=== PATIENT | male | born 1955 | race Two or more races ===

== ENCOUNTER 2019-12-14 09:15 | Outpatient (REF) | payer OTHER, SELFPAY ==
[2019-12-14 10:24] LABS: Alanine Aminotransferase 22 U/L (0-40); Albumin Level 4.6 g/dL (3.5-5.0); Alkaline Phosphatase 85 U/L (39-117); Aspartate Amino Transferase 19 U/L (5-37); Bilirubin Direct 0.2 mg/dL (0.0-0.5); Bilirubin Total 0.4 mg/dL (0.0-1.0); Cholesterol 157 mg/dL; HDL Cholesterol 34 mg/dL; LDL Cholesterol Calculated 85 mg/dl; Triglycerides 192 mg/dL
== END 2019-12-14 09:16 | disposition home or self-care (01) ==
LOC: HO.LAB 09:15
PROVIDERS: PCP Internal Medicine; Visit Provider Internal Medicine
DX: E11.65 Type 2 diabetes mellitus with hyperglycemia (principal); E78.00 Pure hypercholesterolemia, unspecified
CPT/HCPCS: 36415; 80061; 80076

== ENCOUNTER 2020-03-02 07:11 | Outpatient (REF) | payer OTHER, SELFPAY | END 2020-03-02 07:12 | disposition home or self-care (01) | LOC: HO.LAB 07:11 | PROVIDERS: Visit Provider Internal Medicine | DX: Z20.828 Contact with and (suspected) exposure to other viral communicable diseases (principal) | CPT/HCPCS: C9803; U0003 ==

== ENCOUNTER → 2020-05-06 07:25 | Outpatient (BNVA) | payer OTHER, SELFPAY | PROVIDERS: PCP Internal Medicine; Visit Provider Nurse Practitioner Gerontology | DX: E11.65 Type 2 diabetes mellitus with hyperglycemia (principal); Z79.4 Long term (current) use of insulin; E03.9 Hypothyroidism, unspecified; I10 Essential (primary) hypertension; E78.5 Hyperlipidemia, unspecified; E55.9 Vitamin D deficiency, unspecified | CPT/HCPCS: 82947 ==

== ENCOUNTER 2020-05-06 08:34 | Outpatient (REF) | payer OTHER, SELFPAY ==
[2020-05-06 11:05] LABS: Free T4 (Free Thyroxine) 1.07 ng/dL (0.71-1.85); Thyroid Stimulating Hormone 2.14 uIU/mL (0.32-4.0)
== END 2020-05-06 08:35 | disposition home or self-care (01) ==
LOC: HO.10HDL 08:34
PROVIDERS: Visit Provider Nurse Practitioner Gerontology
DX: E03.9 Hypothyroidism, unspecified (principal)
CPT/HCPCS: 36415; 84439; 84443

== ENCOUNTER → 2020-08-05 07:17 | Outpatient (BNVA) | payer OTHER, SELFPAY | PROVIDERS: PCP Internal Medicine; Visit Provider Nurse Practitioner Gerontology | DX: E11.9 Type 2 diabetes mellitus without complications (principal); E03.9 Hypothyroidism, unspecified; I10 Essential (primary) hypertension; E78.5 Hyperlipidemia, unspecified; E55.9 Vitamin D deficiency, unspecified; Z79.4 Long term (current) use of insulin | CPT/HCPCS: 82947 ==

== ENCOUNTER 2020-09-10 06:39 | Outpatient (REF) | payer OTHER, SELFPAY ==
[2020-09-10 08:44] LABS: MANUAL DIFF FLAG NO
[2020-09-10 08:47] LABS: Basophils Absolute Auto 0.1 X10*3/uL (0.0-0.2); Basophils Percent Auto 0.7 % (0-2); Eosinophils Absolute Auto 0.3 X10*3/uL (0.0-0.4); Eosinophils Percent Auto 4.2 % (0-4); Hematocrit 45.9 % (42-52); Hemoglobin 14.9 g/dl (14.0-18.0); Imm Gran Abs Auto 0.02 X10*3/uL (0.00-0.03); Imm Gran Pct Auto 0.3 % (0.0-0.4); Lymphocytes Absolute Auto 2.4 X10*3/uL (1.2-4.9); Lymphocytes Percent Auto 36.2 % (20-40); Mean Corpuscular HGB Conc 32.5 g/dl (31.0-36.0); Mean Corpuscular Hemoglobin 29.5 pg (27.0-33.0); Mean Corpuscular Volume 90.9 fL (80-98); Mean Platelet Volume 9.8 fL (9.4-12.4); Monocytes Absolute Auto 0.6 X10*3/uL (0.1-1.2); Monocytes Percent Auto 9.6 % (2-11); Neutrophils Absolute Auto 3.3 X10*3/uL (2.0-8.3); Platelet Count 283 X10*3/uL (160-400); Red Blood Count 5.05 X10*6/uL (4.60-5.80); Red Cell Distribution Width 12.8 % (11.0-16.0); White Blood Count 6.7 X10*3/uL (4.8-10.8)
[2020-09-10 08:56] LABS: Estimated Average Glucose 174 mg/dL; Hemoglobin A1c % 7.7 %
[2020-09-10 09:05] LABS: Alanine Aminotransferase 17 U/L (0-40); Albumin Level 4.4 g/dL (3.5-5.0); Alkaline Phosphatase 81 U/L (39-117); Anion Gap 14 (12-20); Aspartate Amino Transferase 19 U/L (5-37); Bilirubin Total 0.3 mg/dL (0.0-1.0); Blood Urea Nitrogen 23 mg/dL (9-16); Calcium 9.1 mg/dL (8.4-10.2); Carbon Dioxide 26 mmol/L (22-29); Chloride 103 mmol/L (96-108); Cholesterol 203 mg/dL; Estimated Glomerular Filt Rate > 60; Glucose Fasting 150 mg/dL (60-99); HDL Cholesterol 33 mg/dL; LDL Cholesterol Calculated 101 mg/dl; Potassium 4.6 mmol/L (3.3-5.1); Sodium 138 mmol/L (135-145); Triglycerides 348 mg/dL
[2020-09-10 09:28] LABS: Creatinine Urine 91.51 mg/dL; Microalbum/Creatinine Ratio Ur 10.9 ug/mg cr
[2020-09-10 09:28] LABS: Folate 14.8 ng/mL (> or = 4.0); Free T4 (Free Thyroxine) 1.04 ng/dL (0.71-1.85); Thyroid Stimulating Hormone 2.77 uIU/mL (0.32-4.0); Vitamin B12 404 pg/mL (200-900)
[2020-09-10 09:29] LABS: Vitamin D 25-OH Total 22.2 ng/mL (>30)
[2020-09-11 05:32] LABS: LDL Cholesterol Direct 83 mg/dL (<100)
== END 2020-09-10 06:40 | disposition home or self-care (01) ==
LOC: HO.LAB 06:39
PROVIDERS: Absent Provider Nurse Practitioner Gerontology; PCP Internal Medicine; Visit Provider Internal Medicine
DX: E11.65 Type 2 diabetes mellitus with hyperglycemia (principal); E03.9 Hypothyroidism, unspecified; I10 Essential (primary) hypertension; E78.00 Pure hypercholesterolemia, unspecified; E78.5 Hyperlipidemia, unspecified; E55.9 Vitamin D deficiency, unspecified; Z79.4 Long term (current) use of insulin
CPT/HCPCS: 36415; 80053; 80061; 82043; 82306; 82607; 82746; 83036; 83721; 84153; 84439; 84443; 85025

== ENCOUNTER → 2021-02-10 07:23 | Outpatient (BNVA) | payer OTHER, SELFPAY | PROVIDERS: PCP Internal Medicine; Visit Provider Nurse Practitioner Gerontology | DX: E11.9 Type 2 diabetes mellitus without complications (principal); E03.9 Hypothyroidism, unspecified; E78.5 Hyperlipidemia, unspecified; E55.9 Vitamin D deficiency, unspecified; I10 Essential (primary) hypertension; Z79.4 Long term (current) use of insulin | CPT/HCPCS: 82947 ==

== ENCOUNTER 2021-03-27 09:27 | Outpatient (REF) | payer OTHER, SELFPAY ==
[2021-03-27 11:24] LABS: Alanine Aminotransferase 21 U/L (0-40); Albumin Level 4.5 g/dL (3.5-5.0); Alkaline Phosphatase 82 U/L (39-117); Anion Gap 11 (12-20); Aspartate Amino Transferase 20 U/L (5-37); Bilirubin Total 0.7 mg/dL (0.0-1.0); Blood Urea Nitrogen 22 mg/dL (9-16); Calcium 9.6 mg/dL (8.4-10.2); Carbon Dioxide 29 mmol/L (22-29); Chloride 105 mmol/L (96-108); Cholesterol 149 mg/dL; Estimated Glomerular Filt Rate > 60; Glucose Random 146 mg/dL (60-115); HDL Cholesterol 25 mg/dL; LDL Cholesterol Calculated 74 mg/dl; Sodium 140 mmol/L (135-145); Total Protein 7.5 g/dL (6.5-8.0); Triglycerides 250 mg/dL
[2021-03-27 11:36] LABS: Estimated Average Glucose 177 mg/dL; Hemoglobin A1c % 7.8 %
== END 2021-03-27 09:28 | disposition home or self-care (01) ==
LOC: HO.LAB 09:27
PROVIDERS: PCP Internal Medicine; Visit Provider Internal Medicine
DX: E11.65 Type 2 diabetes mellitus with hyperglycemia (principal); E78.00 Pure hypercholesterolemia, unspecified; E78.5 Hyperlipidemia, unspecified; Z79.4 Long term (current) use of insulin
CPT/HCPCS: 36415; 80053; 80061; 83036

== ENCOUNTER 2022-09-03 12:27 | Outpatient (REF) | payer MEDICARE, SELFPAY ==
--- NOTE | 2022-09-03 12:32 | ECG_ITS ---
Test Reason : preop Blood Pressure : / mmHG Vent. Rate : 076 BPM Atrial Rate : 076 BPM P-R Int : 170 ms QRS Dur : 104 ms QT Int : 370 ms P-R-T Axes : 069 -02 054 degrees QTc Int : 416 ms Normal sinus rhythm Normal ECG When compared with ECG of 05-MAY-2019 03:04, No significant change was found Referred By: Tabatha Arndt Electronically Signed By:SALVADOR JOSHI
[2022-09-03 12:53] LABS: Hematocrit 44.7 % (42.0-52.0); Hemoglobin 14.8 g/dl (14.0-18.0); Mean Corpuscular HGB Conc 33.1 g/dl (31.0-36.0); Mean Corpuscular Hemoglobin 29.9 pg (27.0-33.0); Mean Corpuscular Volume 90.3 fL (80.0-98.0); Mean Platelet Volume 9.2 fL (9.4-12.4); Platelet Count 296 X10*3/uL (160-400); Red Blood Count 4.95 X10*6/uL (4.60-5.80); Red Cell Distribution Width 13.1 % (11.0-16.0); White Blood Count 6.9 X10*3/uL (4.8-10.8)
[2022-09-03 12:58] LABS: INTERNATIONAL NORM RATIO 0.9 (0.9-1.1); Prothrombin Time 10.3 SEC (10.0-13.1)
[2022-09-03 13:07] LABS: Estimated Average Glucose 140 mg/dL; Hemoglobin A1c % 6.5 %
[2022-09-03 13:35] LABS: Anion Gap 16 (12-20); Blood Urea Nitrogen 20 mg/dL (9-16); Calcium 9.9 mg/dL (8.4-10.2); Carbon Dioxide 22 mmol/L (22-29); Chloride 105 mmol/L (96-108); Estimated Glomerular Filt Rate > 60; Glucose Random 111 mg/dL (60-115); Potassium 4.2 mmol/L (3.3-5.1); Sodium 139 mmol/L (135-145)
[2022-09-03 13:52] LABS: TSH reflex Free T4 2.36 uIU/mL (0.32-4.0)
== END 2022-09-03 12:28 | disposition home or self-care (01) ==
LOC: HO.LAB 12:27
PROVIDERS: PCP Internal Medicine; Visit Provider Nurse Practitioner Family
DX: Z01.818 Encounter for other preprocedural examination (principal); E11.65 Type 2 diabetes mellitus with hyperglycemia; I10 Essential (primary) hypertension; H26.9 Unspecified cataract
CPT/HCPCS: 36415; 80048; 83036; 84443; 85027; 85610; 93005

== ENCOUNTER 2022-10-26 08:18 | Outpatient (AMB) | payer MEDICARE, SELFPAY ==
[2022-10-26 08:35] VITALS: BP 108/68; PULSE 66; O2SAT 99; BMI 24.8
--- NOTE | 2022-10-26 08:35 | A.OFFPC_ITS ---
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 Allergies dulaglutide [Trulicity] Allergy (Unknown, Verified 10/26/22 08:49) pancreatitis sitagliptin [From JANUVIA] Allergy (Unknown, Verified 10/26/22 08:49) DIARRHEA Medication List - Last Reconciled 10/26/22 by MACIEJ Jefferson aspirin 81 mg PO DAILY blood sugar diagnostic ([employer] Verio test strips) As directed three times a day cholecalciferol (vitamin D3) 50 mcg (2 x 25 mcg (1,000 unit)) PO DAILY empagliflozin (Jardiance) 25 mg PO DAILY flash glucose scanning reader ([employer]Style Lucinda 14 Day [place]) As directed flash glucose sensor ([employer]Style Lucinda 14 Day Sensor kit) As directed insulin glargine (Lantus Solostar U-100 Insulin) 26 units subcut QPM insulin lispro (Humalog KwikPen (U-100) Insulin) 2-6 units per meal, may add additional 2 units for bg over 200 subcut 3 times a day; 30 days levothyroxine 50 mcg PO DAILY lisinopril 10 mg PO DAILY metformin 500 mg in the AM and 1000 in the pm. 30 days omega-3 fatty acids 1,000 mg PO DAILY rosuvastatin 20 mg PO DAILY Tobacco use date assessed: 10/26/22 Fall risk assessment: No Falls in past year Last assessed Fall Risk: 10/26/22 Dental Screening Dental Screen Date: 10/26/22 Did you have a dental visit in the last 12 months?: Yes Did you have a dental problem in the last 6 months where you did not have access to dental care?: No HPI HPI Comments History of Present Illness Details 67-year-old male with history of hypertension, hyperlipidemia, type 2 diabetes mellitus, CKD, subclinical hypothyroidism and vitamin-D deficiency.? Patient last seen in august.?Patient presents today for follow up visit. Right shoulder pain at times at night, with occasional popping. Patient reports cortisone shot in the past for bone spur at [facility]. Denies pain at his time. Patient denies any acute injury, denies any numbness tingling down the arm and upper extremity weakness. Offered referral to physical therapy however patient declines at this time would like to proceed with x-ray 1st. Patient reminded to get previously ordered fasting labs completed. [facility] Medical History (Updated 10/26/22 @ 08:59 by MACIEJ Jefferson) Chronic kidney disease (CKD) stage G2/A1, mildly decreased glomerular filtration rate (GFR) between 60-89 mL/min/1.73 square meter and albuminuria creatinine ratio less than 30 mg/g COVID-19 virus infection Degenerative disc disease, lumbar Diabetic nephropathy Hyperlipidemia LDL goal <100 Hypertension Leukopenia Lumbar back pain with radiculopathy affecting left lower extremity Overweight (BMI 25.0-29.9) Pancreatitis Subclinical hypothyroidism Tubular adenoma of colon Type 2 diabetes mellitus with hyperglycemia Vitamin D deficiency Surgical History History of thumb surgery Hx of hand surgery Retained orthopedic hardware Trigger thumb, right thumb Family History Father No problems noted. Mother Diabetes Brother Diabetes Sister No problems noted. Social History Household Members: Family Housing: House Alcohol intake: current Alcohol intake frequency: holidays/special occasions only Alcohol type: beer Patient Tobacco Use Status: Former Tobacco user Tobacco use type: Cigarette e-Cigarette/Vaping Use: Never Used Second Hand Smoke Exposure: No service: Yes Current occupational status: employed Current occupational exposures/hazards: No Cognitive needs: No Hearing needs: No Vision needs: No Questionnaire Thrive Questionnaire Date Thrive assessed: 04/20/22 AUDIT C Alcohol Use Questionnaire (AUDIT-C) 1. How often do you have a drink containing alcohol?: Never 3. How often do you have six or more drinks on one occasion?: Never Total Score: 0 Score Reviewed/Action Taken: No THEODORE-7 AMB Questionnaire THEODORE-7 Date THEODORE - 7 assessed: 04/20/22 Source: Developed by Drs. Jovani Campos, Terri Tran, Javi Carranza and colleagues, with an educational toni from [employer] Review of Systems Const Denies chills, Denies fatigue, Denies fever(s) and Denies poor appetite Eyes Denies no additional complaints ENT Reports Normal hearing present Card Denies chest pain, Denies syncope, Denies rapid heart rate and Denies dyspnea Resp Denies cough and Denies dyspnea GI Denies change in stool character, Denies constipation, Denies diarrhea, Denies nausea and Denies vomiting Denies dysuria, Denies urinary frequency and Denies urinary urgency Musc Reports arthralgias (right shoulder pain ) Neuro Reports Normal hearing present, Denies confusion and Denies syncope Psych Denies confusion Endo Denies fatigue Physical exam (Primary Care) Vital Signs: Last Vital Signs Pulse 66 10/26/22 08:35 BP 108/68 10/26/22 08:35 Pulse Ox 99 10/26/22 08:35 Oxygen Delivery Method Room Air 10/26/22 08:35 BMI result Body Mass Index 24.8 Tobacco/Smoking Status: Tobacco use Status Tobacco use date assessed 10/26/22 10/26/22 08:36 Patient Tobacco Use Status Former Tobacco user 10/26/22 08:36 Tobacco use type Cigarette 10/26/22 08:36 e-Cigarette/Vaping Use Never Used 10/26/22 08:36 Thrive Assessment: Date of Thrive Assessment Date Thrive assessed 04/20/22 10/26/22 08:36 Const General: No confusion Orientation/consciousness: No confusion HENMT Head: Yes normocephalic and Yes atraumatic Eyes Conjunctivae: conjunctivae normal Chest Chest palpation & inspection: normal inspection of the chest Resp Effort & Inspection: normal respiratory effort Auscultation: clear to auscultation bilaterally, no crackles, no rhonchi and no wheezes Cardio Rate: regular rate Rhythm: regular rhythm Heart sounds: S1 normal heart sound present and S2 normal heart sound present GI Inspection: Yes normal to inspection Neuro General: No confusion Cranial nerves: Yes Normal hearing present Extrem General: No edema Right upper extremity: normal to inspection and shoulder/upper arm Details: normal to inspection and abnormal ROM Details: pain with active ROM; no pain with passive ROM; no tenderness and no swelling Left upper extremity: normal to inspection and full ROM Assessment and Plan Assessment & Plan (1) Right shoulder pain: Code(s): M25.511 - Pain in right shoulder Plan: Right shoulder x-ray ordered. Patient advise can continue to take [id number] Tylenol or ibuprofen as needed for pain. Offered referral to physical therapy however patient would like to obtain x-ray prior to considering physical therapy referral. (2) Type 2 diabetes mellitus with hyperglycemia: Code(s): E11.65 - Type 2 diabetes mellitus with hyperglycemia Qualifiers: Diabetes mellitus manager terminal insulin use: with mcfp use Qualified Code(s): E11.65 - Type 2 diabetes mellitus with hyperglycemia; Z79.4 - manager terminal (current) use of insulin Plan: Continue on metformin, Humalog and Lantus 26 units. Patient educated to decrease the amount of carbohydrate intake such as pasta, bread, rice and potatoes are all sugar in addition to the sweet stuff. Remember that fruits are good but they also have sugar.Hemoglobin A1c goal of less than 6.5% With patient reminded him previously ordered fasting labs completed. (3) Hyperlipidemia LDL goal <100: Code(s): E78.5 - Hyperlipidemia, unspecified Plan: Continue on rosuvastatin. Avoid fried foods, chicken skin, eggs, butter,margarine, pastries and? red meat. (4) Subclinical hypothyroidism: Code(s): E03.9 - Hypothyroidism, unspecified Plan: Continue on levothyroxine 50mcg daily. Plan Keep scheduled physical exam with in April. Orders: Orders XR shoulder RT min 2V Today M25.511 - Pain in right shoulder Coding Level of Care Code Est Pt Level 4 (09703) Diagnoses Right shoulder pain M25.511 Type 2 diabetes mellitus with hyperglycemia E11.65; Z79.4 Diabetes mellitus manager terminal insulin use: with mcfp use Hyperlipidemia LDL goal <100 E78.5 Subclinical hypothyroidism E03.9
== END 2022-10-26 08:57 | disposition home or self-care (01) ==
PROVIDERS: PCP Internal Medicine; Visit Provider Nurse Practitioner Family
DX: E11.65 Type 2 diabetes mellitus with hyperglycemia (principal); Z79.4 Long term (current) use of insulin; E03.9 Hypothyroidism, unspecified; M25.511 Pain in right shoulder; E78.5 Hyperlipidemia, unspecified
CPT/HCPCS: 99214

== ENCOUNTER 2022-10-26 09:02 | Outpatient (REF) | payer MEDICARE, SELFPAY ==
--- NOTE | ~2022-10-26 | XR_ITS ---
EXAMINATION: XR SHOULDER, RIGHT CLINICAL INFORMATION: Pain in right shoulder COMPARISON: None available. TECHNIQUE: AP external rotation, Grashey, scapular Y, and axillary views of the right shoulder. FINDINGS: Degenerative changes on limited views of the upper thoracic spine. Mild hypertrophic change in the acromioclavicular joint. Glenohumeral alignment preserved with mild hypertrophic change. Mild cortical irregularity along the superior mid to lateral aspect of the humeral head. XR/XR shoulder RT min 2V IMPRESSION: Mild cortical irregularity along the superior mid to lateral aspect of the humeral head. Mild degenerative changes. Additional imaging with CT scan or MRI should be considered for better visualization as these modalities are much more sensitive for detection of fracture or other underlying pathology.
[2022-10-26 09:13] LABS: MANUAL DIFF FLAG NO
[2022-10-26 10:28] LABS: Basophils Percent Auto 0.6 % (0-2); Eosinophils Absolute Auto 0.3 X10*3/uL (0.0-0.4); Eosinophils Percent Auto 4.9 % (0-4); Hematocrit 44.4 % (42.0-52.0); Hemoglobin 14.5 g/dl (14.0-18.0); Imm Gran Abs Auto 0.02 X10*3/uL (0.00-0.03); Imm Gran Pct Auto 0.3 % (0.0-0.4); Lymphocytes Absolute Auto 2.1 X10*3/uL (1.2-4.9); Lymphocytes Percent Auto 33.3 % (20-40); Mean Corpuscular HGB Conc 32.7 g/dl (31.0-36.0); Mean Corpuscular Hemoglobin 29.9 pg (27.0-33.0); Mean Corpuscular Volume 91.5 fL (80.0-98.0); Mean Platelet Volume 9.5 fL (9.4-12.4); Monocytes Absolute Auto 0.6 X10*3/uL (0.1-1.2); Monocytes Percent Auto 9.1 % (2-11); Neutrophils Absolute Auto 3.3 x10*3/uL (2.0-8.3); Neutrophils Percent Auto 51.8 % (45-73); Platelet Count 283 X10*3/uL (160-400); Red Blood Count 4.85 X10*6/uL (4.60-5.80); White Blood Count 6.4 X10*3/uL (4.8-10.8)
[2022-10-26 11:31] LABS: Estimated Average Glucose 143 mg/dL; Hemoglobin A1c % 6.6 %
[2022-10-26 11:41] LABS: Alanine Aminotransferase 18 U/L (0-40); Albumin Level 4.2 g/dL (3.5-5.0); Alkaline Phosphatase 69 U/L (39-117); Anion Gap 12 (12-20); Aspartate Amino Transferase 19 U/L (5-37); Bilirubin Total 0.3 mg/dL (0.0-1.0); Blood Urea Nitrogen 15 mg/dL (9-16); Calcium 9.5 mg/dL (8.4-10.2); Carbon Dioxide 27 mmol/L (22-29); Chloride 107 mmol/L (96-108); Cholesterol 164 mg/dL; Estimated Glomerular Filt Rate > 60; HDL Cholesterol 37 mg/dL; LDL Cholesterol Calculated 106 mg/dl; Potassium 3.5 mmol/L (3.3-5.1); Sodium 142 mmol/L (135-145); Total Protein 6.9 g/dL (6.5-8.0); Triglycerides 109 mg/dL
[2022-10-26 11:52] LABS: PSA,Total (Free>4and<10) 2.52 ng/mL (0.00-4.00)
[2022-10-26 11:58] LABS: TSH reflex Free T4 2.61 uIU/mL (0.32-4.0); Vitamin D 25-OH Total 47.3 ng/mL (>30)
[2022-10-26 14:01] LABS: Glucose Random 43 mg/dL (60-115)
== END 2022-10-26 09:03 | disposition home or self-care (01) ==
LOC: HO.LAB 09:02
PROVIDERS: PCP Internal Medicine; Visit Provider Nurse Practitioner Family
DX: Z13.0 Encounter for screening for diseases of the blood and blood-forming organs and certain disorders involving the immune mechanism (principal); Z12.5 Encounter for screening for malignant neoplasm of prostate; Z13.29 Encounter for screening for other suspected endocrine disorder; M25.511 Pain in right shoulder; E55.9 Vitamin D deficiency, unspecified; E78.5 Hyperlipidemia, unspecified; E11.65 Type 2 diabetes mellitus with hyperglycemia
CPT/HCPCS: 36415; 73030; 80053; 80061; 82306; 83036; 84153; 84443; 85025

== ENCOUNTER 2022-11-12 13:52 | Outpatient (REF) | payer MEDICARE, SELFPAY ==
--- NOTE | ~2022-11-12 | CT_ITS ---
EXAMINATION: CT SHOULDER WITHOUT CONTRAST, RIGHT CLINICAL INFORMATION: Osteoarthritis. COMPARISON: Right shoulder radiographs dated 10/26/2022. TECHNIQUE: Contiguous axial CT images of the right shoulder were obtained without contrast. Multiplanar reformats were provided and reviewed. This CT examination was performed using dose optimization techniques as appropriate, variously including the following: *Automated exposure control *Adjustment of mA and/or kV according to patient size (this includes techniques or standardized protocols for targeted exams where dose is matched to indication/reason for exam; i.e. extremities or head) *Use of iterative reconstruction technique DLP: 272 mGy-cm FINDINGS: Moderate glenohumeral joint space narrowing with small marginal osteophytes. No significant bony remodeling. No significant glenoid retroversion. Glenoid vault depth measures approximately 2.3 cm. Mild acromioclavicular joint space narrowing with small marginal osteophytes. No subacromial spurring. No acute fracture or dislocation. No concerning lytic or blastic osseous lesion. Partially visualized degenerative disc disease and facet arthropathy within the cervical spine. Grossly intact rotator cuff tendons, however, evaluation is significantly limited on CT examination. Small glenohumeral joint effusion. No abnormal soft tissue mass or fluid collection. No right axillary lymphadenopathy. Subpleural nodule measuring 0.3 x 0.2 cm along the lateral aspect of the right major fissure (axial image [id number]). Otherwise, the visualized right lung is clear. CT/CT shoulder RT wo IV con IMPRESSION: 1. Moderate glenohumeral osteoarthritis. Small joint effusion. 2. Mild acromioclavicular osteoarthritis. 3. Partially visualized degenerative disc disease and facet arthropathy within the cervical spine. 4. Subpleural nodule along the lateral aspect of the right major fissure measuring up to 0.3 cm. According to the UPDATED 2017 Fleischner Society recommendations, the advised follow-up imaging for solid nodules < 6 mm is: LOW RISK PATIENT: No routine follow-up. HIGH RISK PATIENT: Optional CT at 12 months.
== END 2022-11-12 13:53 | disposition home or self-care (01) ==
LOC: HO.CT 13:52
PROVIDERS: Visit Provider Nurse Practitioner Family
DX: M19.011 Primary osteoarthritis, right shoulder (principal)
CPT/HCPCS: 73200

== ENCOUNTER 2022-12-17 10:45 | Outpatient (AMB) | payer MEDICARE, SELFPAY ==
--- NOTE | 2022-12-17 10:49 | MHC.OFFVIS ---
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 Patient reports that this pain has been present for about 12 years. Denies numbness tingling and weakness. Hx of cortisone done at [facility]. CT scan was done at [facility] showing mild AC joint OA. HE reports it hurts a lot when he is sleeping and with certain movements. Allergies dulaglutide [Trulicity] Allergy (Unknown, Verified 12/17/22 10:51) pancreatitis sitagliptin [From JANUVIA] Allergy (Unknown, Verified 12/17/22 10:51) DIARRHEA Medication List - Last Reconciled 12/17/22 by Marine Tariq RN aspirin 81 mg PO DAILY blood sugar diagnostic ([employer] Verio test strips) As directed three times a day cholecalciferol (vitamin D3) 50 mcg (2 x 25 mcg (1,000 unit)) PO DAILY empagliflozin (Jardiance) 25 mg PO DAILY flash glucose scanning reader ([employer] Lucinda 14 Day [place]) As directed flash glucose sensor ([employer] Lucinda 14 Day Sensor kit) As directed insulin glargine (Lantus Solostar U-100 Insulin) 26 units subcut QPM insulin lispro (Humalog KwikPen (U-100) Insulin) 2-6 units per meal, may add additional 2 units for bg over 200 subcut 3 times a day; 30 days levothyroxine 50 mcg PO DAILY lisinopril 10 mg PO DAILY metformin 500 mg in the AM and 1000 in the pm. 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 He complains of pain with daily activity, worse with certain movements and at night. He reports having difficulty sleeping due to his pain, as well as with overhead reaching activities. He denies any numbness, tingling, or weakness. He has a hx of steroid injections at [facility] in the past. [facility] History (Updated 12/17/22 @ 11:11 by Kade Cool) COVID-19 virus infection Type 2 diabetes mellitus with hyperglycemia Pancreatitis Hyperlipidemia LDL goal <100 Diabetic nephropathy Degenerative disc disease, lumbar Vitamin D deficiency Leukopenia Lumbar back pain with radiculopathy affecting left lower extremity Subclinical hypothyroidism Tubular adenoma of colon Chronic kidney disease (CKD) stage G2/A1, mildly decreased glomerular filtration rate (GFR) between 60-89 mL/min/1.73 square meter and albuminuria creatinine ratio less than 30 mg/g Hypertension Overweight (BMI 25.0-29.9) Surgical History Retained orthopedic hardware Hx of hand surgery History of thumb surgery Trigger thumb, right thumb Family History Father No problems noted. Mother Diabetes Brother Diabetes Sister No problems noted. Social History Household Members: Family Housing: House Alcohol intake: current Alcohol intake frequency: holidays/special occasions only Alcohol type: beer Patient Tobacco Use Status: Former Tobacco user Tobacco use type: Cigarette e-Cigarette/Vaping Use: Never Used Second Hand Smoke Exposure: No service: Yes Current occupational status: employed Current occupational exposures/hazards: No Cognitive needs: No Hearing needs: No Vision needs: No Review of Systems Const All systems reviewed & are unremarkable except as noted in HPI and below Physical Exam Const General: no acute distress, alert and awake Orientation/consciousness: patient oriented x3 HEENT Head: Yes normocephalic and Yes atraumatic Eyes EOM: EOMs intact bilaterally Resp Effort & Inspection: normal respiratory effort and able to speak in complete sentences Cardio Jugular venous distension: no JVD Skin General skin exam: turgor normal Rashes: no rashes Neuro General: patient oriented x3 Extrem Other: Right Shoulder: 90/130/40/L5 +H/N Neg EC Psych Appearance: grossly normal Affect: normal affect Attitude: cooperative Results Reviewed Results Reviewed: I personally reviewed relevant radiographs & CT images Mild cortical irregularity along the superior mid to lateral aspect of the humeral head. Mild degenerative changes. Additional imaging with CT scan or MRI should be considered for better visualization as these modalities are much more sensitive for detection of fracture or other underlying pathology. 1. Moderate glenohumeral osteoarthritis. Small joint effusion. 2. Mild acromioclavicular osteoarthritis. 3. Partially visualized degenerative disc disease and facet arthropathy within the cervical spine. 4. Subpleural nodule along the lateral aspect of the right major fissure measuring up to 0.3 cm. Assessment & Plan Assessment & Plan (1) Impingement syndrome of right shoulder: Code(s): M75.41 - Impingement syndrome of right shoulder Plan: This is a 67 year old man with right shoulder impingement. He has pain with daily activity, worse with overhead activities and at night. He has a hx of injections at [facility], with some relief. He has some OA on radiographs but his motion is good and his symptoms are more extra-articular. I discussed his diagnosis and treatment options. I ordered an MRI to assess his shoulder, he will follow up when completed for review. 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
== END 2022-12-17 11:17 | disposition home or self-care (01) ==
PROVIDERS: PCP Internal Medicine; Visit Provider Orthopaedic Surgery
DX: M75.41 Impingement syndrome of right shoulder (principal)
CPT/HCPCS: 99204

== ENCOUNTER → 2022-12-17 10:45 | Outpatient (BNVA) | payer MEDICARE, SELFPAY | PROVIDERS: PCP Internal Medicine; Visit Provider Orthopaedic Surgery ==

== ENCOUNTER 2023-11-24 11:38 | Outpatient (AMB) | payer MEDICARE, SELFPAY ==
[2023-11-24 11:46] VITALS: BP 118/76; PULSE 97; O2SAT 98; BMI 24.1
--- NOTE | 2023-11-24 11:46 | MHC.PC.OV ---
Vital Signs 11/24/23 11:46 Height 5 ft 7 in Weight 154 lb BMI 24.1 BP 118/76 Blood Pressure Location Lt brachial Position Sitting Pulse 97 Pulse Source Pulse Oximeter Pulse Oximetry (%) 98 Oxygen Delivery Method Room Air Intake Visit Reasons: PE - see comments Affiliate Marketing Specialist Required: No Accompanied by: Self / Same As Patient Allergies dulaglutide [Trulicity] Allergy (Unknown, Verified 11/24/23 11:50) pancreatitis sitagliptin [From JANUVIA] Allergy (Unknown, Verified 11/24/23 11:50) DIARRHEA Medication List - Last Reconciled 11/24/23 by Freddie Wade MD aspirin 81 mg PO DAILY blood sugar diagnostic ([employer] Verio test strips) As directed three times a day cholecalciferol (vitamin D3) 50 mcg (2 x 25 mcg (1,000 unit)) PO DAILY empagliflozin (Jardiance) 25 mg PO DAILY flash glucose scanning reader (XOGStyle Lucinda 14 Day [place]) As directed flash glucose sensor (FreeStyle Lucinda 14 Day Sensor kit) As directed insulin glargine (Lantus Solostar U-100 Insulin) 26 units subcut QPM insulin lispro (Humalog KwikPen (U-100) Insulin) 2-6 units per meal, may add additional 2 units for bg over 200 subcut 3 times a day; 30 days levothyroxine 50 mcg PO DAILY lisinopril 10 mg PO DAILY metformin 1,000 mg PO BIDWMEAL omega-3 fatty acids 1,000 mg PO DAILY rosuvastatin 20 mg PO DAILY Tobacco use date assessed: 10/26/22 Fall risk assessment: No Falls in past year Last assessed Fall Risk: 11/24/23 Dental Screening Dental Screen Date: 11/24/23 Did you have a dental visit in the last 12 months?: Yes Did you have a dental problem in the last 6 months where you did not have access to dental care?: No Was dental information given to patient?: Patient has dentist HPI PE - see comments HPI Details 68-year-old male with diabetes mellitus hypercholesterolemia hypothyroidism last seen in October 2022. Patient is here for physical exam. Review of the notes was seen by orthopedics in 01/01/2023 for impingement syndrome of the right shoulder. Had an x-ray done showing moderate glenohumeral osteoarthritis mild acromioclavicular osteoarthritis degenerative disc disease of the cervical spine noted subpleural nodule 0.3 cm on the right major fissure. Has had injections from [facility] (ML4D) spine and sports advised MRI of the right shoulder patient had colonoscopy also done in March 2018 having tubular adenoma. complains of cord on the L posterior leg but no swelling [facility] Medical History (Updated 11/24/23 @ 12:20 by Freddie Wade MD) COVID-19 virus infection Type 2 diabetes mellitus with hyperglycemia Pancreatitis Hyperlipidemia LDL goal <100 Diabetic nephropathy Degenerative disc disease, lumbar Vitamin D deficiency Leukopenia Lumbar back pain with radiculopathy affecting left lower extremity Subclinical hypothyroidism Tubular adenoma of colon Chronic kidney disease (CKD) stage G2/A1, mildly decreased glomerular filtration rate (GFR) between 60-89 mL/min/1.73 square meter and albuminuria creatinine ratio less than 30 mg/g Hypertension Overweight (BMI 25.0-29.9) Surgical History Retained orthopedic hardware Hx of hand surgery History of thumb surgery Trigger thumb, right thumb Family History Father No problems noted. Mother Diabetes Brother Diabetes Sister No problems noted. Social History (Updated 11/24/23 @ 12:14 by Freddie Wade MD) Household Members: Family Housing: House Alcohol intake: current Alcohol intake frequency: holidays/special occasions only Alcohol type: beer Comment: 2x a year 2-3 beers Patient Tobacco Use Status: Former Tobacco user Tobacco use type: Cigarette Years Smoked: quit smoking 1993 e-Cigarette/Vaping Use: Never Used Second Hand Smoke Exposure: No service: Yes Current occupational status: employed Current occupational exposures/hazards: No Cognitive needs: No Hearing needs: No Vision needs: No Questionnaire PHQ-9 Over the last 2 weeks, how often have you been bothered by any of the following problems? 1. Little interest or pleasure in doing things: not at all 2. Feeling down, depressed, or hopeless: not at all 3. Trouble falling or staying asleep, or sleeping too much: more than half the days 4. Feeling tired or having little energy: not at all 5. Poor appetite or overeating: not at all 6. Feeling bad about yourself - or that you are a failure or have let yourself or your family down: not at all 7. Trouble concentrating on things, such as reading the newspaper or watching television: not at all 8. Moving or speaking so slowly that other people could have noticed. Or the opposite - being so fidgety or restless that you have been moving around a lot more than usual: not at all 9. Thoughts that you would be better off or of hurting yourself in some way: not at all Total score: 2 Source: Developed by Drs. Jovani Campos, Terri Tran, Javi Carranza and colleagues, with an educational toni from [employer]. Thrive Questionnaire Date Thrive assessed: 11/24/23 I am a: Patient What is your living situation today?: I have a steady place to live Within the past 12 months, did the food you bought not last and you didn't have the money to get more?: Never true Within the past 12 months, did you worry whether your food would run out before you got money to buy more?: Never true Do you have trouble paying for medicines?: No Do you have trouble getting transportation to medical appointments?: No Do you have trouble paying your heating and electricity bill?: No Do you have trouble taking care of your child, family member or friend?: No Do you have trouble with day-to-day activities such as bathing, preparing meals, shopping, managing finances, etc.?: No Are you currently unemployed and looking for a job?: No Are you interested in more education?: No Please select the resources that you would like help with: Paying for medicine Currently or been in a relationship where the following occur: No concerns reported THRIVE Score: 0 AUDIT C Alcohol Use Questionnaire (AUDIT-C) 1. How often do you have a drink containing alcohol?: Monthly or less 2. How many drinks containing alcohol do you have on a typical day when you are drinking?: 1 or 2 3. How often do you have six or more drinks on one occasion?: Less than monthly Total Score: 2 THEODORE-7 AMB Questionnaire THEODORE-7 Date THEODORE - 7 assessed: 11/24/23 Feeling nervous, anxious, or on edge: 0 = Not at all Not being able to stop or control worryin = Not at all Worrying too much about different things: 1 = Several days Trouble relaxin = Not at all Being so restless that it is hard to sit still: 1 = Several days Becoming easily annoyed or irritable: 1 = Several days Feeling afraid as if something awful might happen: 0 = Not at all Total THEODORE-7 score (0-4 normal; 5-9 mild; 10-14 moderate; 15-21 severe): 3 Source: Developed by Drs. Jovani Campos, Terri Tran, Javi Carranza and colleagues, with an educational toni from [employer]. Review of Systems Const Denies poor appetite and Denies weakness Eyes Denies no additional complaints ENT Reports Normal hearing present, Denies dizziness, Denies nasal congestion, Denies tinnitus and Denies sore throat Card Denies chest pain, Denies syncope, Denies rapid heart rate and Denies dyspnea Resp Denies cough and Denies dyspnea GI Denies change in stool character, Reports constipation, Denies diarrhea, Denies nausea and Denies vomiting Denies dysuria and Denies urinary frequency Neuro Reports Normal hearing present, Denies confusion, Denies dizziness, Denies syncope and Denies weakness Psych Denies confusion Physical exam (Primary Care) Vital Signs: Last Vital Signs Pulse 97 11/24/23 11:46 BP 118/76 11/24/23 11:46 Pulse Ox 98 11/24/23 11:46 Oxygen Delivery Method Room Air 11/24/23 11:46 BMI result Body Mass Index 24.1 Tobacco/Smoking Status: Tobacco use Status Tobacco use date assessed 10/26/22 11/24/23 11:49 Patient Tobacco Use Status Former Tobacco user 11/24/23 11:49 Tobacco use type Cigarette 11/24/23 11:49 e-Cigarette/Vaping Use Never Used 11/24/23 11:49 PHQ-9: PHQ-9 Score PHQ-9: Total score 2 11/24/23 11:56 Thrive Assessment: Date of Thrive Assessment Date Thrive assessed 11/24/23 11/24/23 11:52 Currently or been in a relationship where the following occur: No concerns reported Const General: No confusion Orientation/consciousness: No confusion HENMT Head: Yes normocephalic Ears: external ears normal and TM's normal bilaterally Face and sinus: Yes normal facial exam Mouth: moist mucous membranes Throat: Yes tonsils normal Eyes Conjunctivae: conjunctivae normal Pupils: Equal, round and reactive pupils present and Pupil accommodation reflex normal Direct Ophthalmoscopy: normal light reflex Neck Neck: No lymphadenopathy Thyroid: Thyroid normal Chest Chest palpation & inspection: normal inspection of the chest Resp Effort & Inspection: normal respiratory effort and no audible wheezes Auscultation: clear to auscultation bilaterally, no crackles, no wheezes and lung sounds not diminished Cardio Rate: regular rate Rhythm: regular rhythm Peripheral pulses: radial pulses present and dorsalis pedis present GI Other: guaiac negative , prostate enlarged Palpation (GI): no masses Auscultation: normal bowel sounds and normoactive bowel sounds Other: pedal puslse and pin prick is good Male General Exam: Yes normal external exam Skin General skin exam: no rashes or lesions noted Rashes: no rashes Neuro General: No confusion Cranial nerves: Yes Equal, round and reactive pupils present and Yes Normal hearing present Cognition (Neuro): normal cognition Gait exam (Neuro): Normal gait present Motor exam (neuro): 5/5 motor strength present throughout Deep tendon reflexes (DTR's): Right brachioradialis reflex intensity grade: 2+, Left brachioradialis reflex intensity grade: 2+, Right patellar reflex intensity grade: 2+ and Left patellar reflex intensity grade: 2+ Extrem General: No edema Results AMB Hemoglobin A1c AMB Hemoglobin A1c 7.1 % Last Edit by Becky Post CMA on 11/24/23 11:56 Results Reviewed Results Reviewed: Laboratory Last Values Hgb A1c (Clinic) 7.1 % (4.0-6.0) H 11/24/23 11:52 Assessment and Plan Assessment & Plan (1) Annual physical exam: Code(s): Z00.00 - Encounter for general adult medical examination without abnormal findings Plan: Patient is advised to eat healthy, keep well hydrated, keep active and have adequate sleep. (2) Type 2 diabetes mellitus with hyperglycemia: Comment: SD Code(s): E11.65 - Type 2 diabetes mellitus with hyperglycemia Qualifiers: Diabetes mellitus skilled nursing insulin use: with skilled nursing use Qualified Code(s): E11.65 - Type 2 diabetes mellitus with hyperglycemia; Z79.4 - wad lubricator (current) use of insulin Plan: Decrease the amount of carbohydrate intake, pasta, bread, rice and potatoes are all sugar and that is aside from all the sweet stuff, remember that fruits are good but they are Sweet also. Hemoglobin A1c goal of less than 7.0 on Jardiance 25 mg once a day Lantus 26 units once a day Humalog sliding scale and metformin (3) Hypertension: Code(s): I10 - Essential (primary) hypertension Qualifiers: Hypertension type: essential hypertension Qualified Code(s): I10 - Essential (primary) hypertension Plan: Continue with blood pressure medication. Decrease salt intake and exercise takes lisinopril 10 mg once a day (4) Hyperlipidemia LDL goal <100: Code(s): E78.5 - Hyperlipidemia, unspecified Plan: Avoid fried foods, chicken skin, eggs, butter margarine, pastries and meat. Be it pork or beef they have a lot of cholesterol LDL goal of less than 100 and triglyceride of less than 150 will need blood work (5) Subclinical hypothyroidism: Code(s): E03.9 - Hypothyroidism, unspecified Plan: Continue with thyroid medication advised blood work (6) Chronic kidney disease (CKD) stage G2/A1, mildly decreased glomerular filtration rate (GFR) between 60-89 mL/min/1.73 square meter and albuminuria creatinine ratio less than 30 mg/g: Code(s): N18.2 - Chronic kidney disease, stage 2 (mild) Plan: Patient is advised blood work (7) Right middle lobe pulmonary nodule: Comment: 2022 Code(s): R91.1 - Solitary pulmonary nodule Plan: Noted on [address]22 CT scan (8) Degenerative joint disease, shoulder, right: Code(s): M19.011 - Primary osteoarthritis, right shoulder Plan: Keep active (9) Superficial thrombophlebitis of left leg: Code(s): I80.02 - Phlebitis and thrombophlebitis of superficial vessels of left lower extremity (10) Frequency of micturition: Code(s): R35.0 - Frequency of micturition Plan: US bladder advised (11) Numbness of left foot: Code(s): R20.0 - Anesthesia of skin (12) Tubular adenoma of colon: Comment: March 2018 Code(s): D12.6 - Benign neoplasm of colon, unspecified Orders: Orders Comprehensive Met. Panel Today E11.65 - Type 2 diabetes mellitus with hyperglycemia, Z79.4 - care home (current) use of insulin Vitamin B12 and Folate Today E11.65 - Type 2 diabetes mellitus with hyperglycemia, Z79.4 - care home (current) use of insulin Creatinine Urine Today E11.65 - Type 2 diabetes mellitus with hyperglycemia, Z79.4 - care home (current) use of insulin Microalbumin, Random (w Creat) Today E11.65 - Type 2 diabetes mellitus with hyperglycemia, Z79.4 - wad lubricator (current) use of insulin XR lumbar spine 2-3V Today R20.0 - Anesthesia of skin AMB Hemoglobin A1c Today E11.65 - Type 2 diabetes mellitus with hyperglycemia, Z79.4 - care home (current) use of insulin Complete Blood Count Auto Diff Today E11.65 - Type 2 diabetes mellitus with hyperglycemia, Z79.4 - care home (current) use of insulin Free T4 (Free Thyroxine) Today E11.65 - Type 2 diabetes mellitus with hyperglycemia, Z79.4 - wad lubricator (current) use of insulin Thyroid Stimulating Hormone Today E11.65 - Type 2 diabetes mellitus with hyperglycemia, Z79.4 - care home (current) use of insulin Prostate Specific Antigen Scr Today E11.65 - Type 2 diabetes mellitus with hyperglycemia, Z79.4 - care home (current) use of insulin Lipid Panel Today E11.65 - Type 2 diabetes mellitus with hyperglycemia, E78.00 - Pure hypercholesterolemia, unspecified, Z79.4 - wad lubricator (current) use of insulin Hemoglobin A1c Today E11.65 - Type 2 diabetes mellitus with hyperglycemia, Z79.4 - care home (current) use of insulin CT chest wo con - High Res Today R91.1 - Solitary pulmonary nodule US bladder Today R35.0 - Frequency of micturition Referrals Gastroenterology Referral D12.6 - Benign neoplasm of colon, unspecified Coding Level of Care Code Est Pt Prev Care >65y([id number]) Diagnoses Annual physical exam Z00.00 Type 2 diabetes mellitus with hyperglycemia, with long-term current use of insulin E11.65; Z79.4 Diabetes mellitus skilled nursing insulin use: with skilled nursing use Essential hypertension I10 Hypertension type: essential hypertension Hyperlipidemia LDL goal <100 E78.5 Subclinical hypothyroidism E03.9 Chronic kidney disease (CKD) stage G2/A1, mildly decreased glomerular filtration rate (GFR) between 60-89 mL/min/1.73 square meter and albuminuria creatinine ratio less than 30 mg/g N18.2 Right middle lobe pulmonary nodule R91.1 Degenerative joint disease, shoulder, right M19.011 Superficial thrombophlebitis of left leg I80.02 Frequency of micturition R35.0 Numbness of left foot R20.0 Tubular adenoma of colon D12.6
== END 2023-11-24 12:40 | disposition home or self-care (01) ==
PROVIDERS: PCP Internal Medicine; Visit Provider Internal Medicine
DX: Z00.00 Encounter for general adult medical examination without abnormal findings (principal); E11.65 Type 2 diabetes mellitus with hyperglycemia; Z79.4 Long term (current) use of insulin; I12.9 Hypertensive chronic kidney disease with stage 1 through stage 4 chronic kidney disease, or unspecified chronic kidney disease; E78.5 Hyperlipidemia, unspecified; E03.9 Hypothyroidism, unspecified; N18.2 Chronic kidney disease, stage 2 (mild); R91.1 Solitary pulmonary nodule; M19.011 Primary osteoarthritis, right shoulder; I80.02 Phlebitis and thrombophlebitis of superficial vessels of left lower extremity; R35.0 Frequency of micturition; R20.0 Anesthesia of skin; D12.6 Benign neoplasm of colon, unspecified
CPT/HCPCS: 83036; 99397

== ENCOUNTER 2023-11-24 12:48 | Outpatient (REF) | payer MEDICARE, SELFPAY ==
--- NOTE | ~2023-11-24 | XR_ITS ---
EXAMINATION: XR LUMBOSACRAL SPINE CLINICAL INFORMATION: Anesthesia of skin COMPARISON: 10/29/2015 TECHNIQUE: Three views of the lumbosacral spine. FINDINGS: Levoscoliosis of the lumbar spine. Straightening of the normal lumbar lordosis. Facet arthritis in the lower lumbar spine. Advanced multilevel lumbar spondylosis. Marked loss of disc space height with abundant hypertrophic changes subchondral sclerosis at L3-L4. Moderate loss of disc space height at L5-S1. XR/XR lumbar spine 2-3V IMPRESSION: Advanced multilevel lumbar spondylosis most notable at L3-L4. Electronically signed by: Nancy Young MD 12/07/2023 07:24 AM EDT
== END 2023-11-24 12:49 | disposition home or self-care (01) ==
LOC: HO.XRAY 12:48
PROVIDERS: PCP Internal Medicine; Visit Provider Internal Medicine
DX: R20.0 Anesthesia of skin (principal)
CPT/HCPCS: 72100

== ENCOUNTER 2023-12-03 15:30 | Outpatient (REF) | payer MEDICARE, SELFPAY ==
--- NOTE | ~2023-12-03 | US_ITS ---
EXAMINATION: US PELVIS LIMITED (BLADDER) CLINICAL INFORMATION: Frequency. COMPARISON: None available. TECHNIQUE: Real-time imaging of the bladder. FINDINGS: BLADDER: Well-distended. Mild diffuse irregularity and borderline thickening of the bladder wall. Bilateral ureteral jets are demonstrated. Prevoid bladder volume is 159 mL. Postvoid bladder volume is 30 mL. Enlarged prostate with volume 38.7 mL. US/US bladder IMPRESSION: 1. Mild diffuse irregularity and borderline thickening of the bladder wall. 2. Enlarged prostate with volume 38.7 mL. Electronically signed by: Nancy Young MD 12/08/2023 06:35 AM EDT
== END 2023-12-03 15:31 | disposition home or self-care (01) ==
LOC: HO.US 15:30
PROVIDERS: PCP Internal Medicine; Visit Provider Internal Medicine
DX: R35.0 Frequency of micturition (principal)
CPT/HCPCS: 76857

== ENCOUNTER 2023-12-24 13:42 | Outpatient (REF) | payer MEDICARE, SELFPAY ==
--- NOTE | ~2023-12-24 | CT_ITS ---
EXAMINATION: CT CHEST WITHOUT CONTRAST CLINICAL INFORMATION: Solitary pulmonary nodule. COMPARISON: None available. TECHNIQUE: Multidetector volumetric CT imaging of the chest was done. Axial MIP volume rendering provided. Sagittal and coronal reformatted images were obtained. This CT examination was performed using dose optimization techniques as appropriate, variously including the following: *Automated exposure control *Adjustment of mA and/or kV according to patient size (this includes techniques or standardized protocols for targeted exams where dose is matched to indication/reason for exam; i.e. extremities or head) *Use of iterative reconstruction technique DLP: 155 mGy-cm FINDINGS: Submitted for interpretation on February 23, 2024. There are few scattered bilateral, less than 4 mm noncalcified pulmonary nodules, the most conspicuous in the left lower lung lobe. No bronchiectasis. No honeycombing. No consolidation, pleural effusion or pneumothorax. Respiratory airways is patent. No lymphadenopathy, mediastinum. No gross pericardial effusion Old trace amount in the anterior lower pericardium. Calcified plaques in the coronary arteries and thoracic aorta. No aneurysm in the thoracic aorta. The thyroid gland is not enlarged. No axillary lymphadenopathy. Multilevel spondylosis more conspicuous at T1 to with the sclerosis and subchondral cyst cyst formation. Grade [address] anterol[address]hesis C7-T1. CT/CT chest wo IV con IMPRESSION: Nonspecific multiple, less than 4 mm noncalcified pulmonary nodules. Fleischner criteria: Low risk patients: No routine follow-up. High risk patients: optioal CT at 12 months. Spondylosis at T1/2 with sclerosis. Underlying acute to subacute inflammatory process should be considered. Grade 1 anterolisthesis C7-T1. Fleischner guidelines were followed. Electronically signed by: Yury Patel MD 02/23/2024 08:45 AM EST
== END 2023-12-24 13:43 | disposition home or self-care (01) ==
LOC: HO.CT 13:42
PROVIDERS: PCP Internal Medicine; Visit Provider Internal Medicine
DX: R91.1 Solitary pulmonary nodule (principal)
CPT/HCPCS: 71250

== ENCOUNTER → 2023-12-24 13:44 | Outpatient (BNV) | payer MEDICARE, SELFPAY | PROVIDERS: PCP Internal Medicine; Visit Provider Radiology Diagnostic Radiology | DX: R91.1 Solitary pulmonary nodule (principal) | CPT/HCPCS: 71250 ==

== ENCOUNTER 2024-04-04 09:39 | Outpatient (AMB) | payer MEDICARE, SELFPAY ==
--- NOTE | 2024-04-04 09:45 | A.OFFPC_ITS ---
Vital Signs 04/04/24 09:46 Height 5 ft 7 in Weight 160 lb 6 oz BMI 25.1 BP 110/70 Blood Pressure Location Lt brachial Position Sitting Pulse 76 Pulse Source Pulse Oximeter Temp 96.9 F Temp Source Skin Pulse Oximetry (%) 96 Oxygen Delivery Method Room Air Intake Visit Reasons: DM Intake Note: Patient is here to follow up on DM. 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 Maintenance: Not Required per policy Accompanied by: Self / Same As Patient Allergies dulaglutide [Trulicity] Allergy (Unknown, Verified 04/04/24 09:46) pancreatitis sitagliptin [From JANUVIA] Allergy (Unknown, Verified 04/04/24 09:46) DIARRHEA Tobacco use date assessed: 04/04/24 Fall risk assessment: No Falls in past year Last assessed Fall Risk: 04/04/24 Dental Screening Dental Screen Date: 04/04/24 Did you have a dental visit in the last 12 months?: Yes Did you have a dental problem in the last 6 months where you did not have access to dental care?: No Was dental information given to patient?: Patient has dentist HPI DM HPI Details The patient is a 68-year-old male presenting with follow-up for diabetes, cholesterol management, musculoskeletal pain, and urinary symptoms. The patient has a history of hypercholesterolemia, with the last blood work from 2022 showing elevated levels. He has not completed recent blood work due to a missed appointment and plans to do it while fasting. The patient has Type 2 Diabetes Mellitus, managed with Jardiance, and reports checking blood sugar approximately four times weekly. Recent glucose levels were 160 mg/dL. He denies experiencing hypoglycemic episodes but admits to occasional dietary indiscretions contributing to elevated glucose levels. The patient also reports longstanding back pain related to advanced multi-level lumbar spondylosis, confirmed by lumbar spine X-ray. There is a history of carrying heavy objects, aggravating the pain. Additionally, he experiences sciatica intermittently but has declined surgical interventions due to past unfavorable experiences with surgery. Regarding urinary symptoms, an ultrasound indicated a slightly enlarged prostate at 38 cc. Urinary frequency of two to three times nightly is noted, with fairly complete bladder emptying. A chest CT indicated the presence of nonspecific pulmonary nodules less than 4 mm in size, which are to be monitored annually. Insomnia is another issue, with occasional use of 10 mg melatonin aiding sleep. The patient also experiences leg cramps, mitigated by nighttime water intake. [facility] Medical History (Updated 04/04/24 @ 10:00 by Freddie Wade MD) History of insertion of dental endosseous implant COVID-19 virus infection Type 2 diabetes mellitus with hyperglycemia Pancreatitis Hyperlipidemia LDL goal <100 Diabetic nephropathy Degenerative disc disease, lumbar Vitamin D deficiency Leukopenia Lumbar back pain with radiculopathy affecting left lower extremity Subclinical hypothyroidism Tubular adenoma of colon Chronic kidney disease (CKD) stage G2/A1, mildly decreased glomerular filtration rate (GFR) between 60-89 mL/min/1.73 square meter and albuminuria creatinine ratio less than 30 mg/g Hypertension Overweight (BMI 25.0-29.9) Surgical History Retained orthopedic hardware Hx of hand surgery History of thumb surgery Trigger thumb, right thumb Family History Father No problems noted. Mother Diabetes Brother Diabetes Sister No problems noted. Social History Household Members: Family Housing: House Alcohol intake: current Alcohol intake frequency: holidays/special occasions only Alcohol type: beer Comment: 2x a year 2-3 beers Patient Tobacco Use Status: Former Tobacco user Tobacco use type: Cigarette Years Smoked: quit smoking 1994 e-Cigarette/Vaping Use: Never Used Second Hand Smoke Exposure: No service: Yes Current occupational status: employed Current occupational exposures/hazards: No Cognitive needs: No Hearing needs: No Vision needs: No Questionnaire PHQ-9 Over the last 2 weeks, how often have you been bothered by any of the following problems? 1. Little interest or pleasure in doing things: not at all 2. Feeling down, depressed, or hopeless: not at all 3. Trouble falling or staying asleep, or sleeping too much: not at all 4. Feeling tired or having little energy: not at all 5. Poor appetite or overeating: not at all 6. Feeling bad about yourself - or that you are a failure or have let yourself or your family down: not at all 7. Trouble concentrating on things, such as reading the newspaper or watching television: not at all 8. Moving or speaking so slowly that other people could have noticed. Or the opposite - being so fidgety or restless that you have been moving around a lot more than usual: not at all 9. Thoughts that you would be better off or of hurting yourself in some way: not at all Total score: 0 Depression Screening Interpretation: Negative Depression Screening Done: Yes Source: Developed by Drs. Jovani Campos, Terri Tran, Javi Carranza and colleagues, with an educational toni from [employer]. Thrive Questionnaire Date Thrive assessed: 04/04/24 AUDIT C Alcohol Use Questionnaire (AUDIT-C) 1. How often do you have a drink containing alcohol?: Monthly or less 2. How many drinks containing alcohol do you have on a typical day when you are drinking?: 1 or 2 Total Score: 1 THEODORE-7 AMB Questionnaire THEODORE-7 Date THEODORE - 7 assessed: 04/04/24 Feeling nervous, anxious, or on edge: 0 = Not at all Not being able to stop or control worryin = Not at all Worrying too much about different things: 0 = Not at all Trouble relaxin = Not at all Being so restless that it is hard to sit still: 0 = Not at all Becoming easily annoyed or irritable: 0 = Not at all Feeling afraid as if something awful might happen: 0 = Not at all Total THEODORE-7 score (0-4 normal; 5-9 mild; 10-14 moderate; 15-21 severe): 0 Source: Developed by Drs. Jovani Campos, Terri Tran, Javi Carranza and colleagues, with an educational toni from [employer]. Physical exam (Primary Care) Vital Signs: Last Vital Signs Temp 96.9 F 04/04/24 09:46 Pulse 76 04/04/24 09:46 BP 110/70 04/04/24 09:46 Pulse Ox 96 04/04/24 09:46 Oxygen Delivery Method Room Air 04/04/24 09:46 BMI result Body Mass Index 25.1 Tobacco/Smoking Status: Tobacco use Status Tobacco use date assessed 04/04/24 04/04/24 09:54 Patient Tobacco Use Status Former Tobacco user 04/04/24 09:54 Tobacco use type Cigarette 04/04/24 09:54 e-Cigarette/Vaping Use Never Used 04/04/24 09:54 PHQ-9: PHQ-9 Score PHQ-9: Total score 0 04/04/24 09:54 Depression Screening Interpretation: Negative Thrive Assessment: Date of Thrive Assessment Date Thrive assessed 04/04/24 04/04/24 09:54 Const General: alert; No acute distress Eyes Conjunctivae: conjunctivae normal Resp Auscultation: clear to auscultation bilaterally Cardio Rate: regular rate Rhythm: regular rhythm GI Inspection: Yes normal to inspection Extrem General: Yes normal to inspection and No edema Results AMB Hemoglobin A1c AMB Hemoglobin A1c 7.2 % Last Edit by PILY Boyd on 04/04/24 09:57 Results Reviewed Results Reviewed: Laboratory Last Values Hgb A1c (Clinic) 7.2 % (4.0-6.0) H 04/04/24 09:44 Coding Level of Care Code Est Pt Level 4 (67557) Complex EM visit Add On G2211 Diagnoses Type 2 diabetes mellitus with hyperglycemia, with long-term current use of insulin E11.65; Z79.4 Diabetes mellitus usp insulin use: with usp use Hyperlipidemia LDL goal <100 E78.5 Essential hypertension I10 Hypertension type: essential hypertension Chronic kidney disease (CKD) stage G2/A1, mildly decreased glomerular filtration rate (GFR) between 60-89 mL/min/1.73 square meter and albuminuria creatinine ratio less than 30 mg/g N18.2 Right middle lobe pulmonary nodule R91.1 Tubular adenoma of colon D12.6 BPH loc w urin obs/LUTS N40.1 Assessment & Plan Assessment & Plan (1) Type 2 diabetes mellitus with hyperglycemia: Comment: [place] Code(s): E11.65 - Type 2 diabetes mellitus with hyperglycemia Category: Medical Qualifiers: Diabetes mellitus terminal supervisor insulin use: with usp use Qualified Code(s): E11.65 - Type 2 diabetes mellitus with hyperglycemia; Z79.4 - bed bug exterminator (current) use of insulin (2) Hyperlipidemia LDL goal <100: Code(s): E78.5 - Hyperlipidemia, unspecified Category: Medical (3) Hypertension: Code(s): I10 - Essential (primary) hypertension Category: Medical Qualifiers: Hypertension type: essential hypertension Qualified Code(s): I10 - Essential (primary) hypertension (4) Chronic kidney disease (CKD) stage G2/A1, mildly decreased glomerular filtration rate (GFR) between 60-89 mL/min/1.73 square meter and albuminuria creatinine ratio less than 30 mg/g: Code(s): N18.2 - Chronic kidney disease, stage 2 (mild) Category: Medical (5) Right middle lobe pulmonary nodule: Comment: 2022February 2024 Code(s): R91.1 - Solitary pulmonary nodule Category: Medical (6) Tubular adenoma of colon: Comment: March 2018 Code(s): D12.6 - Benign neoplasm of colon, unspecified Category: Medical (7) BPH loc w urin obs/LUTS: Code(s): N40.1 - Benign prostatic hyperplasia with lower urinary tract symptoms Category: Medical Plan - Schedule fasting blood work for cholesterol assessment as ordered. - Continue Jardiance for diabetes management; emphasize dietary control to improve glucose levels. Consider reserving insulin escalation and Ozempic initiation subject to patient's preference against additional medications. - Monitor lumbar spondylosis symptoms with conservative pain management and postural adjustments to avoid exacerbating conditions. - Observe night-time urinary frequency. Consider potential medication or urological referral if symptoms worsen. - Annual re-evaluation of pulmonary nodules via chest CT. - Maintain current melatonin routine for sleep assistance, explore additional options if insomnia persists. - Encourage preventive measures including regular eye examinations and flu vaccinations. - Advise against excessive fluid intake overnight to reduce nocturia. - Review overall health status in subsequent visits, emphasizing preventive measures and chronic disease management. Orders: Orders AMB Hemoglobin A1c Today E11.65 - Type 2 diabetes mellitus with hyperglycemia, Z79.4 - long-term (current) use of insulin
[2024-04-04 09:46] VITALS: BP 110/70; PULSE 76; TEMP 36.1; O2SAT 96; BMI 25.1
== END 2024-04-04 10:20 | disposition home or self-care (01) ==
PROVIDERS: PCP Internal Medicine; Visit Provider Internal Medicine
DX: E11.65 Type 2 diabetes mellitus with hyperglycemia (principal); Z79.4 Long term (current) use of insulin; E78.5 Hyperlipidemia, unspecified; I12.9 Hypertensive chronic kidney disease with stage 1 through stage 4 chronic kidney disease, or unspecified chronic kidney disease; N18.2 Chronic kidney disease, stage 2 (mild); R91.1 Solitary pulmonary nodule; D12.6 Benign neoplasm of colon, unspecified; N40.1 Benign prostatic hyperplasia with lower urinary tract symptoms

== ENCOUNTER → 2024-04-04 09:39 | Outpatient (BNVA) | payer MEDICARE, SELFPAY | PROVIDERS: PCP Internal Medicine; Visit Provider Internal Medicine | DX: E11.65 Type 2 diabetes mellitus with hyperglycemia (principal); E78.5 Hyperlipidemia, unspecified; I12.9 Hypertensive chronic kidney disease with stage 1 through stage 4 chronic kidney disease, or unspecified chronic kidney disease; E11.22 Type 2 diabetes mellitus with diabetic chronic kidney disease; N18.2 Chronic kidney disease, stage 2 (mild); R91.1 Solitary pulmonary nodule; D12.6 Benign neoplasm of colon, unspecified; N40.1 Benign prostatic hyperplasia with lower urinary tract symptoms; Z79.4 Long term (current) use of insulin | CPT/HCPCS: 83036; 99212 ==

== ENCOUNTER 2024-04-05 06:49 | Outpatient (REF) | payer MEDICARE, SELFPAY ==
[2024-04-05 07:01] LABS: MANUAL DIFF FLAG NO
[2024-04-05 07:15] LABS: Basophils Absolute Auto 0.1 X10*3/uL (0.0-0.2); Basophils Percent Auto 0.8 % (0-2); Eosinophils Absolute Auto 0.3 X10*3/uL (0.0-0.4); Eosinophils Percent Auto 4.4 % (0-4); Hematocrit 45.9 % (42.0-52.0); Hemoglobin 15.2 g/dl (14.0-18.0); Imm Gran Abs Auto 0.02 X10*3/uL (0.00-0.03); Imm Gran Pct Auto 0.3 % (0.0-0.4); Lymphocytes Absolute Auto 2.3 X10*3/uL (1.2-4.9); Lymphocytes Percent Auto 36.9 % (20-40); Mean Corpuscular HGB Conc 33.1 g/dl (31.0-36.0); Mean Corpuscular Hemoglobin 30.5 pg (27.0-33.0); Mean Corpuscular Volume 92.2 fL (80.0-98.0); Mean Platelet Volume 9.2 fL (9.4-12.4); Monocytes Absolute Auto 0.7 X10*3/uL (0.1-1.2); Monocytes Percent Auto 10.2 % (2-11); Neutrophils Percent Auto 47.4 % (45-73); Platelet Count 253 X10*3/uL (160-400); Red Blood Count 4.98 X10*6/uL (4.60-5.80); Red Cell Distribution Width 12.7 % (11.0-16.0); White Blood Count 6.4 X10*3/uL (4.8-10.8)
[2024-04-05 07:33] LABS: Estimated Average Glucose 157 mg/dL; Hemoglobin A1C 204.5429 umol/L; Hemoglobin A1c % 7.1 % (<6.0); Total Hemoglobin (HGBA1C) 3808.3983 umol/L
[2024-04-05 07:40] LABS: Creatinine Urine 162.84 mg/dL; Microalbum/Creatinine Ratio Ur 41.7 ug/mg cr (<30)
[2024-04-05 07:48] LABS: Alanine Aminotransferase 38 U/L (0-40); Albumin Level 4.4 g/dL (3.5-5.0); Alkaline Phosphatase 74 U/L (39-117); Anion Gap 8 (12-20); Aspartate Amino Transferase 31 U/L (5-37); Bilirubin Total 0.4 mg/dL (0.0-1.0); Blood Urea Nitrogen 21 mg/dL (9-16); Calcium 9.6 mg/dL (8.4-10.2); Carbon Dioxide 30 mmol/L (22-29); Chloride 106 mmol/L (96-108); Cholesterol 149 mg/dL (<200); Estimated Glomerular Filt Rate > 60; Glucose Random 105 mg/dL (60-115); HDL Cholesterol 33 mg/dL (>40); LDL Cholesterol Calculated 74 mg/dL (<100); Potassium 3.9 mmol/L (3.3-5.1); Sodium 140 mmol/L (135-145); Total Protein 7.3 g/dL (6.5-8.0); Triglycerides 210 mg/dL (<150)
[2024-04-05 08:03] LABS: Free T4 (Free Thyroxine) 0.87 ng/dL (0.71-1.85); Thyroid Stimulating Hormone 10.85 uIU/mL (0.32-4.0)
[2024-04-05 08:15] LABS: Folate 11.6 ng/mL (> or = 4.0); Prostate Specific Antigen Scr 3.28 ng/mL (<0.05-4.0); Vitamin B12 378 pg/mL (200-900)
== END 2024-04-05 06:50 | disposition home or self-care (01) ==
LOC: HO.LAB 06:49
PROVIDERS: PCP Internal Medicine; Visit Provider Internal Medicine
DX: E11.65 Type 2 diabetes mellitus with hyperglycemia (principal); Z79.4 Long term (current) use of insulin; E78.00 Pure hypercholesterolemia, unspecified; Z12.5 Encounter for screening for malignant neoplasm of prostate
CPT/HCPCS: 36415; 80053; 80061; 82043; 82570; 82607; 82746; 83036; 84153; 84439; 84443; 85025

== ENCOUNTER 2024-07-21 09:34 | Outpatient (AMB) | payer MEDICARE, SELFPAY ==
[2024-07-21 09:43] VITALS: BP 112/62; PULSE 76; O2SAT 98; BMI 24.7
--- NOTE | 2024-07-21 09:43 | A.OFFPC_ITS ---
Vital Signs 07/21/24 09:43 Height 5 ft 7 in Weight 158 lb BMI 24.7 BP 112/62 Blood Pressure Location Lt brachial Position Sitting Pulse 76 Pulse Source Pulse Oximeter Pulse Oximetry (%) 98 Oxygen Delivery Method Room Air Intake Visit Reasons: DM - see comments Allergies dulaglutide [Trulicity] Allergy (Unknown, Verified 07/21/24 09:43) pancreatitis sitagliptin [From JANUVIA] Allergy (Unknown, Verified 07/21/24 09:43) DIARRHEA Medication List - Last Reconciled 07/21/24 by Freddie Wade MD aspirin 81 mg PO DAILY blood sugar diagnostic (Zipline GamesTouch Verio test strips) As directed three times a day cholecalciferol (vitamin D3) 50 mcg (2 x 25 mcg (1,000 unit)) PO DAILY empagliflozin (Jardiance) 25 mg PO DAILY flash glucose scanning reader (GigaomStyle Lucinda 14 Day [place]) As directed flash glucose sensor (FreeStyle Lucinda 14 Day Sensor kit) As directed insulin glargine (Lantus Solostar U-100 Insulin) 26 units subcut QPM insulin lispro (Humalog KwikPen (U-100) Insulin) 2-6 units per meal, may add additional 2 units for bg over 200 subcut 3 times a day; 30 days levothyroxine 50 mcg PO DAILY lisinopril 10 mg PO DAILY metformin 1,000 mg PO BIDWMEAL omega-3 fatty acids 1,000 mg PO DAILY rosuvastatin 20 mg PO DAILY Tobacco use date assessed: 04/04/24 Fall risk assessment: No Falls in past year Last assessed Fall Risk: 07/21/24 Dental Screening Dental Screen Date: 04/04/24 HPI DM - see comments HPI Details 68-year-old male with diabetes mellitus chronic kidney disease hypothyroidism hypertension hypercholesterolemia history of tubular adenoma of the colon BPH coming in for follow-up. Last seen in March. Patient has a scheduled colonoscopy in July. Patient's last complete blood work was in March. Noted to have an elevated TSH patient knows to take thyroid medication separately but has not followed up with blood work. Patient is here for follow- up. Colonoscopy scheduled for Wednesday. Patient did not talk to us about preoperative evaluation FOR[facility], [facility] Medical History (Updated 04/04/24 @ 10:00 by Freddie Wade MD) History of insertion of dental endosseous implant COVID-19 virus infection Type 2 diabetes mellitus with hyperglycemia Pancreatitis Hyperlipidemia LDL goal <100 Diabetic nephropathy Degenerative disc disease, lumbar Vitamin D deficiency Leukopenia Lumbar back pain with radiculopathy affecting left lower extremity Subclinical hypothyroidism Tubular adenoma of colon Chronic kidney disease (CKD) stage G2/A1, mildly decreased glomerular filtration rate (GFR) between 60-89 mL/min/1.73 square meter and albuminuria creatinine ratio less than 30 mg/g Hypertension Overweight (BMI 25.0-29.9) Surgical History (Updated 07/20/24 @ 13:19 by Rhonda Spaulding RN) H/O colonoscopy Retained orthopedic hardware Hx of hand surgery History of thumb surgery Trigger thumb, right thumb Family History Father No problems noted. Mother Diabetes Brother Diabetes Sister No problems noted. Social History Household Members: Family Housing: House Alcohol intake: current Alcohol intake frequency: holidays/special occasions only Alcohol type: beer Comment: 2x a year 2-3 beers Patient Tobacco Use Status: Former Tobacco user Tobacco use type: Cigarette Years Smoked: quit smoking 1993 e-Cigarette/Vaping Use: Never Used Second Hand Smoke Exposure: No service: Yes Current occupational status: employed Current occupational exposures/hazards: No Cognitive needs: No Hearing needs: No Vision needs: No Questionnaire PHQ-9 Over the last 2 weeks, how often have you been bothered by any of the following problems? 1. Little interest or pleasure in doing things: not at all 2. Feeling down, depressed, or hopeless: not at all 3. Trouble falling or staying asleep, or sleeping too much: several days 4. Feeling tired or having little energy: several days 5. Poor appetite or overeating: not at all 6. Feeling bad about yourself - or that you are a failure or have let yourself or your family down: not at all 7. Trouble concentrating on things, such as reading the newspaper or watching television: not at all 8. Moving or speaking so slowly that other people could have noticed. Or the opposite - being so fidgety or restless that you have been moving around a lot more than usual: not at all 9. Thoughts that you would be better off or of hurting yourself in some way: not at all Total score: 2 Depression Screening Interpretation: Positive Depression Screening Done: Yes Source: Developed by Drs. Jovani Campos, Terri Tran, Javi Carranza and colleagues, with an educational toni from [employer]. Thrive Questionnaire Date Thrive assessed: 04/04/24 I am a: Patient What is your living situation today?: I have a steady place to live Within the past 12 months, did the food you bought not last and you didn't have the money to get more?: Never true Within the past 12 months, did you worry whether your food would run out before you got money to buy more?: Never true Do you have trouble paying for medicines?: No Do you have trouble getting transportation to medical appointments?: No Do you have trouble paying your heating and electricity bill?: No Do you have trouble taking care of your child, family member or friend?: No Do you have trouble with day-to-day activities such as bathing, preparing meals, shopping, managing finances, etc.?: No Are you currently unemployed and looking for a job?: No Are you interested in more education?: No Please select the resources that you would like help with: None Currently or been in a relationship where the following occur: No concerns reported THRIVE Score: 0 AUDIT C Alcohol Use Questionnaire (AUDIT-C) 1. How often do you have a drink containing alcohol?: Monthly or less 2. How many drinks containing alcohol do you have on a typical day when you are drinking?: 1 or 2 3. How often do you have six or more drinks on one occasion?: Never Total Score: 1 THEODORE-7 AMB Questionnaire THEODORE-7 Date THEODORE - 7 assessed: 04/04/24 Feeling nervous, anxious, or on edge: 0 = Not at all Not being able to stop or control worryin = Not at all Worrying too much about different things: 0 = Not at all Trouble relaxin = Several days Being so restless that it is hard to sit still: 0 = Not at all Becoming easily annoyed or irritable: 0 = Not at all Feeling afraid as if something awful might happen: 0 = Not at all Total THEODORE-7 score (0-4 normal; 5-9 mild; 10-14 moderate; 15-21 severe): 1 Source: Developed by Drs. Jovani Campos, Terri Tran, Javi Carranza and colleagues, with an educational toni from [employer]. Physical exam (Primary Care) Vital Signs: Last Vital Signs Pulse 76 07/21/24 09:43 BP 112/62 07/21/24 09:43 Pulse Ox 98 07/21/24 09:43 Oxygen Delivery Method Room Air 07/21/24 09:43 BMI result Body Mass Index 24.7 Tobacco/Smoking Status: Tobacco use Status Tobacco use date assessed 04/04/24 07/21/24 09:44 Patient Tobacco Use Status Former Tobacco user 07/21/24 09:44 Tobacco use type Cigarette 07/21/24 09:44 e-Cigarette/Vaping Use Never Used 07/21/24 09:44 PHQ-9: PHQ-9 Score PHQ-9: Total score 2 07/21/24 10:09 Depression Screening Interpretation: Positive Thrive Assessment: Date of Thrive Assessment Date Thrive assessed 04/04/24 07/21/24 09:44 Currently or been in a relationship where the following occur: No concerns reported Const General: alert; No acute distress Eyes Conjunctivae: conjunctivae normal Resp Auscultation: clear to auscultation bilaterally Cardio Rate: regular rate Rhythm: regular rhythm GI Inspection: Yes normal to inspection Extrem General: Yes normal to inspection and No edema Results AMB Hemoglobin A1c AMB Hemoglobin A1c 6.6 % Last Edit by Criss Kelly CMA on 07/21/24 10 :09 Results Reviewed Results Reviewed: Laboratory Last Values Hgb A1c (Clinic) 6.6 % (4.0-6.0) H 07/21/24 09:44 Coding Level of Care Code Est Pt Level 4 (75547) Complex EM visit Add On G2211 Diagnoses Type 2 diabetes mellitus with hyperglycemia, with long-term current use of insulin E11.65; Z79.4 Diabetes mellitus alf insulin use: with alf use Essential hypertension I10 Hypertension type: essential hypertension Hyperlipidemia LDL goal <100 E78.5 Subclinical hypothyroidism E03.9 Chronic kidney disease (CKD) stage G2/A1, mildly decreased glomerular filtration rate (GFR) between 60-89 mL/min/1.73 square meter and albuminuria creatinine ratio less than 30 mg/g N18.2 BPH loc w urin obs/LUTS N40.1 Tubular adenoma of colon D12.6 Assessment & Plan Assessment & Plan (1) Type 2 diabetes mellitus with hyperglycemia: Comment: GA Code(s): E11.65 - Type 2 diabetes mellitus with hyperglycemia Category: Medical Qualifiers: 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 Hemoglobin A1c goal of less than 7.0. Patient on Jardiance 25 mg once a day Lantus 26 units once a day Humalog sliding scale metformin is a 1000 mg twice a day. Patient has a scheduled Ophthalmology soon. Discussed with the patient that with in the upcoming colonoscopy advised to hold metformin hold Jardiance and the night before to take Lantus only half the dose. This was clarified and clearly explained to the patient prior to the procedure. Patient was advised to stop aspirin also. (2) Hypertension: Code(s): I10 - Essential (primary) hypertension Category: Medical Qualifiers: Hypertension type: essential hypertension Qualified Code(s): I10 - Essential (primary) hypertension Plan: Continue with blood pressure medication. Decrease salt intake and exercise patient takes lisinopril 10 mg once a day (3) Hyperlipidemia LDL goal <100: Code(s): E78.5 - Hyperlipidemia, unspecified Category: Medical Plan: Avoid fried foods, chicken skin, eggs, butter margarine, pastries and meat. Be it pork or beef they have a lot of cholesterol LDL goal of less than 100 and triglyceride of less than 150 patient is taking rosuvastatin 20 mg once a day (4) Subclinical hypothyroidism: Code(s): E03.9 - Hypothyroidism, unspecified Category: Medical Plan: Dose adjustment as the last blood work showed elevated TSH reminded patient that the patient should have had blood work done. Patient is reminded about the blood work (5) Chronic kidney disease (CKD) stage G2/A1, mildly decreased glomerular filtration rate (GFR) between 60-89 mL/min/1.73 square meter and albuminuria creatinine ratio less than 30 mg/g: Code(s): N18.2 - Chronic kidney disease, stage 2 (mild) Category: Medical Plan: Keep well hydrated avoid NSAIDs. (6) BPH loc w urin obs/LUTS: Code(s): N40.1 - Benign prostatic hyperplasia with lower urinary tract symptoms Category: Medical Plan: Stable (7) Tubular adenoma of colon: Comment: March 2018 Code(s): D12.6 - Benign neoplasm of colon, unspecified Category: Medical Plan: Patient has been scheduled to have a colonoscopy and has met with Gastroenterology Orders: Orders AMB Hemoglobin A1c Today Z13.9 - Encounter for screening, unspecified Medications: Refilled insulin lispro (Humalog KwikPen (U-100) Insulin) 2-6 units per meal, may add additional 2 units for bg over 200 subcut 3 times a day; 30 days 30 mL 1RF E11.65 - Type 2 diabetes mellitus with hyperglycemia, Z79.4 - physician practice consultant (current) use of insulin
--- OUTSIDE RECORDS SUMMARY | 2024-07-21 09:54 | XMS_ITS | Patient Health Record ---
Author Organization [facility] Address [address] [place] [address] Care Team Providers Care Trucking Supervisor Name Role Phone Freddie Wade MD Primary Care Provider Jovani Carrington [phone] Allergies Allergen (clinical drug ingredient) Drug/Non Drug [...] Problem Status W/U Status Risk Notes Problem [id number] Encounter for screening for malignant neoplasm of colon (Z12.11) Active confirmed Problem Personal history of colonic polyps (Z86.010) Active confirmed Problem Pre-procedure evaluation check (740242097) Encounter for other preprocedural examination (Z01.818) Active confirmed Problem [id number] Pre-procedural examination (Z01.818) Active confirmed Vital Signs Blood pressure diastolic 00 mm Hg 03/30/2024 Height 67 in 03/30/2024 Blood pressure systolic 00 mm Hg 03/30/2024 Weight 160 lbs 03/30/2024 BMI 25.06 kg/m2 03/30/2024 Encounters Encounter Location Date Provider Diagnosis [facility] [address] [place] [address] 03/30/2024 Jovani Garcia Encounter for screen ing [...] Provider Name:Jovani Garcia , 07/24/2024 08:30:00 AM, [address] [facility] , [place], [place], [phone], Insurance Providers Payer Name Payer Address Payer Phone Subscriber Number Group Number Insured Name Patient Relationship to Insured Coverage Start Date Coverage End Date [facility] Medicare Advantage Plan [address] [address] [place] [address] [phone] [id number] CRUZITO GUZMAN Self - patient is the insured Medical (General) History Medical History History ICD Code Denies [place],CVA,Lung disease,renal disease IDDM Hypertension Negative screening colonosco py in 07/2007--hyperplastic polyps, diverticulosis, internal hemorrhoids Hyperlipidemia Pancreatitis--from Trulicity Vitamin D deficiency Colonoscopy 03/2018 with a small tubular adenoma removed Hypothyroidism Surgical History Surgery Date(Month/Year) Right hand surgery in 2015 Left hand surgery scheduled for 02/[address] Lomax [facility] thumb surgery
--- OUTSIDE RECORDS SUMMARY | 2024-07-21 09:54 | XMS_ITS ---
Author Organization [facility] Address [address] [place] [phone] Care Team Providers Care Sales Development Executive Name Role Phone Po Freddie MANN Primary Care Provider Jovani Carrington [phone] Allergies Allergen (clinical drug ingredient) Drug/Non Drug [...] Problem History of polyp of colon (situation) (318736998) Personal history of colonic polyps (Z86.010) Active confirmed Problem Pre-procedure evaluation check (877250122) Encounter for other preprocedural examination (Z01.818) Active confirmed Vital Signs Blood pressure systolic 00 mm Hg 03/30/19 25 Blood pressure diastolic 00 mm Hg 025 Height 67 in 03/30/2024 Weight 160 lbs 03/30/2024 BMI 25.06 kg/m2 03/30/2024 Encounters Encounter Location Date Provider Diagnosis [facility] [address] [place] [address] 03/30/2024 Jovani Garcia Encounter for screen ing [...] Provider Name:Jovani Garcia , 07/24/2024 08:30:00 AM, [address] [place] [address] , [place], [place], [phone], Progress Notes * CRUZITO GUZMAN RDOB: (68 yo M)Acc No.[id number]:03/30/2024 Progress Notes Patient:?KULWINDER GUZMAN Provider:?Jovani Garcia MD :1955???Age:68 Y???Sex:Male Lm e:03/30/2024 Address:[address] [place], [place] [id number] Pcp:Freddie Wade MD Subjective: * Chief Complaints: [...] past year??Never (0 point),?Points?1,?Interpretation?Negative.?Miscellaneous:?Marital status: . 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 ???Nonsmoker >10 yrs ago, no sig [...] Procedure Codes:?3017F COLOR ECTAL CA SCREEN DOC [id number] TOBACCO NON-REZLJ2485 BP SCR NOT PRFRM REC REASON NOS * Preventive Medicine:? ??Counseling:?Care goal follow-up plan:?Above Normal BMI Follow-up?Giving encouragement to exercise,?BMI management provided?Yes.? * Follow Up:?prn * * Sign off status: Completed true * Provider:?Jovani Garcia MD Date:? 025 Generated for Eitan guzman/Teresa/Og on:?07/21/2024 09:54 AM EDT History and Physical Notes * HPI [...]
== END 2024-07-21 10:27 | disposition home or self-care (01) ==
LOC: HO.HMCH 09:35
PROVIDERS: PCP Internal Medicine; Visit Provider Internal Medicine
DX: E11.65 Type 2 diabetes mellitus with hyperglycemia (principal); Z79.4 Long term (current) use of insulin; I12.9 Hypertensive chronic kidney disease with stage 1 through stage 4 chronic kidney disease, or unspecified chronic kidney disease; E78.5 Hyperlipidemia, unspecified; E03.9 Hypothyroidism, unspecified; N18.2 Chronic kidney disease, stage 2 (mild); N40.1 Benign prostatic hyperplasia with lower urinary tract symptoms; D12.6 Benign neoplasm of colon, unspecified; Z13.9 Encounter for screening, unspecified

== ENCOUNTER 2024-07-21 09:34 | Outpatient (REF) | payer MEDICARE, SELFPAY ==
[2024-07-21 11:46] LABS: Free T4 (Free Thyroxine) 1.03 ng/dL (0.71-1.85); Thyroid Stimulating Hormone 2.62 uIU/mL (0.32-4.0)
== END 2024-07-21 09:35 | disposition home or self-care (01) ==
LOC: HO.LAB 09:34
PROVIDERS: PCP Internal Medicine; Visit Provider Internal Medicine
DX: E11.65 Type 2 diabetes mellitus with hyperglycemia (principal); E03.9 Hypothyroidism, unspecified; Z79.4 Long term (current) use of insulin; I10 Essential (primary) hypertension; E78.5 Hyperlipidemia, unspecified; N18.2 Chronic kidney disease, stage 2 (mild); D12.6 Benign neoplasm of colon, unspecified
CPT/HCPCS: 36415; 83036; 84439; 84443; 99212

== ENCOUNTER 2024-07-24 07:03 | Day surgery (SDC) | payer MEDICARE, SELFPAY ==
--- OUTSIDE RECORDS SUMMARY | 2024-06-23 14:05 | XMS_ITS | Patient Health Record ---
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 Name Role Phone Freddie Wade MD Primary Care Provider Jovani Carrington [phone] Allergies Allergen (clinical drug ingredient) Drug/Non Drug Allergy documented on EMR Reaction Allergy Type Onset Date Status dulaglutide Trulicity pancreatitis Drug Allergy Ac tive sitagliptin Januvia diarrhea Drug Allergy Activ e Reason For Referral No Information Medications Medication SIG (Take, Route, Frequency, Duration) Notes Start Date End Date Status Rosuvastatin Calcium 20 MG 1 tablet Orally Once a day Active glipiZIDE 10 MG 1 tablet Orally Once a day Not-Taking Levothyroxine Sodium 50 MCG 1 tablet in the morning on an empty stomach Orally Once a day Active Jardiance 25 MG 1 tablet Orally Once a day for 30 day(s) Active Lantus SoloStar 100 UNIT/ML as directed Subcutaneous Active Vitamin D3 Active metFORMIN HCl 1000 MG 1 tablet in the AM and 2 in the PM Orally as directed/ twice a day Active HumaLOG KwikPen 100 UNIT/ML as directed Subcutaneous Active Fish Oil 1000 MG 1 capsule Orally Onc e a day Active Lisinopril 10 MG 1 tablet Orally Once a day Active Aspir-81 81 MG 1 tablet Orally Once a day Active Social History Tobacco Use: Social History Observation Description Date Details (start date - stop date) Former Smoker NA - NA Tobacco Use/Smoking Question Answer Notes Patient is a former smoker How long has it been since you last smoked? > 10 years Alcohol Screen Question Answer Notes Did you have a drink contain ing alcohol in the past year? Yes How often did you have a dri nk containing alcohol in the past year? Monthly or less (1 point) How many drinks did you have on a typical day when you were drinking in the past year? 1 or 2 drinks (0 point) How often did you have 6 or more drinks on one occasion in the past year? Never (0 point) Points 1 Interpretation Negative Section Notes: Nonsmoker > 10 yrs ago, no s ig alcohol Nonsmoker > 10 yrs ago, no s ig alcohol Problems Problem Type SNOMED Code ICD Code Onset Dates Problem Status W/U Status Risk Notes Problem [id number] Encounter for screening for malignant neoplasm of colon (Z12.11) Active confirmed Problem History of polyp of colon (situation) (720943069) Personal history of colonic polyps (Z86.010) Active confirmed Problem Pre-procedure evaluation check (054706064) Encounter for other preprocedural examination (Z01.818) Active confirmed Problem [id number] Pre-procedural examination (Z01.818) Active confirmed Vital Signs Blood pressure diastolic 00 mm Hg 03/30/2024 Height 67 in 03/30/2024 Blood pressure systolic 00 mm Hg 03/30/2024 Weight 160 lbs 03/30/2024 BMI 25.06 kg/m2 03/30/2024 Encounters Encounter Location Date Provider Diagnosis [facility] [address] [place] [address] 03/30/2024 Jovani Garcia Encounter for screen ing for malignant neoplasm of colon Z12.11 ; Encounter for other preprocedural examination Z01.818 and Personal history of colonic polyps Z86.010 Assessments Encounter Date Diagnosis (ICD Code) Assessment Notes Treatment Notes Treatment Clinical Notes Section Notes 03/30/2024 Encounter for screening for malignant neoplasm of colon (ICD-10 - Z12.11) DO NOT TAKE THE JARDIANCE(EMPA GLIFLOZIN) FOR 3 DAYS BEFORE THE COLONOSCOPY DO NOT TAKE THE METFORMIN THE NIGHT BEFORE NOR ON THE MORNING OF THE COLONOSCOPY TAKE ONLY 1/2 OF YOUR USUAL DIABETES INJECTION THE NIGHT BEFORE AND ON THE MORNING OF THE COLONOSCOPY STOP ASPIRIN FOR 1 WEEK BEFORE THE COLONOSCOPY Overall, Cruzito appears quite well. He is not having any new or worrisome GI complaints. Given his history of a tubular adenoma removed 6 years ago and his good clinical appearance, I did recommend a followup colonoscopy for further screening purposes. We did review the rationale for that regard to colon cancer prevention. Full consent is obtained for this, including risks of bleeding and perforation. The procedure will be done with monitored anesthesia care. He was given the below instructions regarding adjustment of his medications for the procedure. Cruzito was comfortable with this plan. Thank you again for allowing me to participate in Cruzito's care. I shall continue to keep you advised of his progress. 03/30/2024 Encounter for other preprocedural examination (ICD-10 - Z01.818) Overall, Cruzito appears quite well. He is not having any new or worrisome GI complaints. Given his history of a tubular adenoma removed 6 years ago and his good clinical appearance, I did recommend a followup colonoscopy for further screening purposes. We did review the rationale for that regard to colon cancer prevention. Full consent is obtained for this, including risks of bleeding and perforation. The procedure will be done with monitored anesthesia care. He was given the below instructions regarding adjustment of his medications for the procedure. Cruzito was comfortable with this plan. Thank you again for allowing me to participate in Cruzito's care. I shall continue to keep you advised of his progress. 03/30/2024 Personal history of colonic polyps (ICD-10 - Z86.010) Overall, Cruzito appears quite well. He is not having any new or worrisome GI complaints. Given his history of a tubular adenoma removed 6 years ago and his good clinical appearance, I did recommend a followup colonoscopy for further screening purposes. We did review the rationale for that regard to colon cancer prevention. Full consent is obtained for this, including risks of bleeding and perforation. The procedure will be done with monitored anesthesia care. He was given the below instructions regarding adjustment of his medications for the procedure. Cruzito was comfortable with this plan. Thank you again for allowing me to participate in Pedros care. I shall continue to keep you advised of his progress. Plan Of Treatment Future Test Test Name Order Date COLONOSCOPY 02/11/2018 COLONOSCOPY 03/30/2024 Next Appt Details Provider Name:Jovani Garcia , 07/24/2024 08:30:00 AM, [address] [place] [address] , [place], [place], [phone], Insurance Providers Payer Name Payer Address Payer Phone Subscriber Number Group Number Insured Name Patient Relationship to Insured Coverage Start Date Coverage End Date [facility] Medicare Advantage Plan [address] [address] [place] [address] [id number] CRUZITO GUZMAN Self - patient is the insured Medical (General) History Medical History History ICD Code Denies VA,CVA,Lung disease,renal disease IDDM Hypertension Negative screening colonosco py in 07/2007--hyperplastic polyps, diverticulosis, internal hemorrhoids Hyperlipidemia Pancreatitis--from Trulicity Vitamin D deficiency Colonoscopy 03/2018 with a small tubular adenoma removed Hypothyroidism Surgical History Surgery Date(Month/Year) Right hand surgery in 2015 Left hand surgery scheduled for 02/[address] Lomax [facility] surgery
--- OUTSIDE RECORDS SUMMARY | 2024-06-23 14:05 | XMS_ITS ---
Author Organization [facility] Address [address] [place] [id number] Care Team Providers Care Can Stacker Name Role Phone Po Freddie MANN Primary Care Provider Jovani Carrington [phone] Allergies Allergen (clinical drug ingredient) Drug/Non Drug Allergy documented on EMR Reaction Allergy Type Onset Date Status dulaglutide Trulicity pancreatitis Drug Allergy Ac tive sitagliptin Januvia diarrhea Drug Allergy Activ e REASON FOR VISIT PATIENT PRESENTS TODAY FOR COLONOSCOPY SCREENING Medications Medication SIG (Take, Route, Frequency, Duration) Notes Start Date End Date Status Lantus SoloStar 100 UNIT/ML as directed Subcutaneous Active metFORMIN HCl 1000 MG 1 tablet in the AM and 2 in the PM Orally as directed/ twice a day Active HumaLOG KwikPen 100 UNIT/ML as directed Subcutaneous Active Fish Oil 1000 MG 1 capsule Orally Onc e a day Active Lisinopril 10 MG 1 tablet Orally Once a day Active Rosuvastatin Calcium 20 MG 1 tablet Orally Once a day Active Levothyroxine Sodium 50 MCG 1 tablet in the morning on an empty stomach Orally Once a day Active Jardiance 25 MG 1 tablet Orally Once a day for 30 day(s) Active Vitamin D3 Active glipiZIDE 10 MG 1 tablet Orally Once a day Not-Taking Aspir-81 81 MG 1 tablet Orally Once [...] Problem Status W/U Status Risk Notes Problem History of polyp of colon (situation) (875386264) Personal history of colonic polyps (Z86.010) Active confirmed Problem Pre-procedure evaluation check (670387676) Encounter for other preprocedural examination (Z01.818) Active confirmed Vital Signs Blood pressure systolic 00 mm Hg 03/30/19 25 Blood pressure diastolic 00 mm Hg 025 Height 67 in 03/30/2024 Weight 160 lbs 03/30/2024 BMI 25.06 kg/m2 03/30/2024 Encounters Encounter Location Date Provider Diagnosis [facility] [address] [place] [address] 03/30/2024 Jovani Garcia Encounter for screen ing [...] advised of his progress. Plan Of Treatment Treatment Notes Assessment Notes Encounter for screening for malignant neoplasm of colon DO NOT TAKE THE JARDIANCE(EMPAGLIFLOZIN) FOR 3 DAYS BEFORE THE COLONOSCOPY DO NOT TAKE THE METFORMIN THE NIGHT BEFORE NOR ON THE MORNING OF THE COLONOSCOPY TAKE ONLY 1/2 OF YOUR USUAL DIABETES INJECTION THE NIGHT BEFORE AND ON THE MORNING OF THE COLONOSCOPY STOP ASPIRIN FOR 1 WEEK BEFORE THE COLONOSCOPY Future Test Test Name Order Date COLONOSCOPY 03/30/2024 Next Appt Details Follow Up: prn, Reason: Provider Name:Jovani Garcia , 07/24/2024 08:30:00 AM, [address] [place] [address] , [place], [place], [id number], Progress Notes * CRUZITO GUZMAN RDOB: (68 yo M)Acc No.[id number]:03/30/2024 Progress Notes Patient:?KULWINDER GUZMAN Provider:?Jovani Garcia MD :[id number]???Age:68 Y???Sex:Male Lm e:03/30/2024 Address:[address] [place], [place] [id number] Pcp:Freddie Wade MD Subjective: * Chief Complaints: * ???PATIENT PRESENTS TODAY FO R COLONOSCOPY SCREENING * HPI: ???incontinence:? I saw Cruzito in the office today for evaluation of his personal history of a tubular adenoma of the colon and need for colorectal cancer screening. ?I last saw Cruzito in March of 2018, at which time he underwent a screening colonoscopy with removal of a small tubular adenoma. He presently feels very well. He enjoys a good appetite, without any significant heartburn or dysphagia. His bowel movements have been regular and without any signs of bleeding. He denies any abdominal pain, signs of jaundice, nor unintentional weight loss. He denies any known family history of colon cancer. * ROS:?General/Constitutional:?Change in appetite?denies.?Chills?denies.?Fatigue?denies.?Ophthalmologic:?Comments?all negative.?ENT:?Comments?all negative.?Respiratory:?hemoptysis?denies.?Cough?denies.?Cardiovascular:?Chest pain?denies.?Orthopnea?denies.?Gastrointestinal:?Comments?See HPI for details.?Genitourinary:?Hematuria?denies.?Dysuria?denies.?Musculoskeletal:?Painful joints?denies.?Weakness?denies.?Skin:?Itching?denies.?Rash?denies.?Neurologic:?Headache?denies.?Seizures?denies.?Psychiatric:?Comments?all negative.? * Medical History:? * Surgical History:?Right hand surgery in 2016 Left hand surgery scheduled for 02/[address] Lomax Trigger thumb surgery * Hospitalization/Major Diagno stic Procedure:?No Hospitalization History. * Family History:?Father: dece ased.?Mother: , diagnosed with HTN (hypertension), Diabetes.? No colorectal cancer. * Social History:?Tobacco Use:?Tobacco Use/Smoking?Patient is a?former smoker,?How long has it been since you last smoked??> 10 years.?Drugs/Alcohol:?Alcohol Screen?Did you have a drink containing alcohol in the past year??Yes,?How often did you have a drink containing alcohol in the past year??Monthly or less (1 point), How many drinks did you have on a typical day when you were drinking in the past year??1 or 2 drinks (0 point),?How often did you have 6 or more drinks on one occasion in the past year??Never (0 point),?Points?1,?Interpretation?Negative.?Miscellaneous:?Marital status: . 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 ???Nonsmoker >10 yrs ago, no sig alcohol. * Medications:?TakingRosuvasta tin Calcium 20 MG Tablet 1 tablet Orally Once a dayJardiance 25 MG Tablet 1 tablet Orally Once a dayLevothyroxine Sodium 50 MCG Tablet 1 tablet in the morning on an empty stomach Orally Once a dayVitamin D3 Lantus SoloStar 100 UNIT/ML Solution Pen-injector as directed Subcutaneous HumaLOG KwikPen 100 UNIT/ML Solution Pen-injector as directed Subcutaneous metFORMIN HCl 1000 MG Tablet 1 tablet in the AM and 2 in the PM Orally as directed/ twice a dayLisinopril 10 MG Tablet 1 tablet Orally Once a dayFish Oil 1000 MG Capsule 1 capsule Orally Once a dayAspir-81 81 MG Tablet Delayed Release 1 tablet Orally Once a dayTaking Rosuvastatin Calcium 20 MG Tablet 1 tablet Orally Once a dayTaking Jardiance 25 MG Tablet 1 tablet Orally Once a dayTaking Levothyroxine Sodium 50 MCG Tablet 1 tablet in the morning on an empty stomach Orally Once a dayTaking Vitamin D3 Taking Lantus SoloStar 100 UNIT/ML Solution Pen-injector as directed Subcutaneous Taking HumaLOG KwikPen 100 UNIT/ML Solution Pen-injector as directed Subcutaneous Taking metFORMIN HCl 1000 MG Tablet 1 tablet in the AM and 2 in the PM Orally as directed/ twice a dayTaking Lisinopril 10 MG Tablet 1 tablet Orally Once a dayTaking Fish Oil 1000 MG Capsule 1 capsule Orally Once a dayTaking Aspir-81 81 MG Tablet Delayed Release 1 tablet Orally Once a dayNot-Taking/PRNglipiZIDE 10 MG Tablet 1 tablet Orally Once a dayNot-Taking/PRN glipiZIDE 10 MG Tablet 1 tablet Orally Once a dayDiscontinuedAtorvastatin Calcium 40 MG Tablet 1 tablet Orally Once a dayInvokana 100 MG Tablet 1 tablet Orally Once a dayVitamin D2 2000 UNIT Tablet 1 tablet Orally Once a dayBasaglar KwikPen 100 UNIT/ML Solution Pen-injector 30 units Subcutaneous QHSMedication List reviewed and reconciled with the patientDiscontinued Atorvastatin Calcium 40 MG Tablet 1 tablet Orally Once a dayDiscontinued Invokana 100 MG Tablet 1 tablet Orally Once a dayDiscontinued Vitamin D2 2000 UNIT Tablet 1 tablet Orally Once a dayDiscontinued Basaglar KwikPen 100 UNIT/ML Solution Pen-injector 30 units Subcutaneous QHSMedication List reviewed and reconciled with the patient * Allergies:?Januvia: diarrhea Trulicity: pancreatitisyes[Allergies Verified] Objective: * Vitals:?Wt: 160 lbs, Ht: 67 in, BMI:25.06 Index, BP: 00/00 mm Hg. * Examination: ???General Examination: ?GENERAL APPEARANCE:?pleasant, well nourished, well developed, in no acute distress.?EYES:?sclera non-icteric.?ORAL CAVITY:?mucosa moist.?NECK/THYROID:?no cervical lymphadenopathy, neck supple.?SKIN:?nonjaundiced, no spider angiomata.?HEART:?S1, S2 normal.?LUNGS:?clear to auscultation bilaterally.?ABDOMEN:?normal bowel sounds, no guarding or rigidity, no guarding or rigidity, no masses palpable, soft, nontender, nondistended.?EXTREMITIES:?no edema.?NEUROLOGIC:?alert and oriented.? Assessment: * Assessment: 1.?Encounter for other prepr ocedural examination - Z01.818 (Primary)?2.?Encounter for screening for malignant neoplasm of colon - Z12.11?3.?Personal history of colonic polyps - Z86.010? Overall, Cruzito appears quit e well. He is not having any new [...] to keep you advised of his progress. Plan: * Treatment: Notes: DO NOT TAKE THE JARDIANCE(EMPAGLIFLOZIN) FOR 3 DAYS BEFORE THE COLONOSCOPY DO NOT TAKE THE METFORMIN THE NIGHT BEFORE NOR ON THE MORNING OF THE COLONOSCOPY TAKE ONLY 1/2 OF YOUR USUAL DIABETES INJECTION THE NIGHT BEFORE AND ON THE MORNING OF THE COLONOSCOPY STOP ASPIRIN FOR 1 WEEK BEFORE THE COLONOSCOPY??2.?Personal history of colonic polyps?Procedure: COLONOSCOPY (Ordered for 03/30/2024)* with MACsched for 07/24/24 at 8:30 ammiralax * Procedure Codes:?3017F COLOR ECTAL CA SCREEN DOC [id number] TOBACCO [id number] BP SCR NOT PRFRM REC REASON NOS * Preventive Medicine:? ??Counseling:?Care goal follow-up plan:?Above Normal BMI Follow-up?Giving encouragement to exercise,?BMI management provided?Yes.? * Follow Up:?prn * * Sign off status: Completed true * Provider:?Jovani Garcia MD Date:? 025 Generated for Eitan guzman/Teresa/Og on:?06/23/2024 02:05 PM EDT History and Physical Notes * HPI (History of Present Illness) Category Sub-Category Detail Notes Category Not es incontinence I saw Cruzito in the office today for evaluation of his personal history of a tubular adenoma of the colon and need for colorectal cancer screening. I last saw Cruzito in March of 2018, at which time he underwent a screening colonoscopy with removal of a small tubular adenoma. He presently feels very well. He enjoys a good appetite, without any significant heartburn or dysphagia. His bowel movements have been regular and without any signs of bleeding. He denies any abdominal pain, signs of jaundice, nor unintentional weight loss. He denies any known family history of colon cancer. Examination Category Sub-Category Detail Notes Category Not es General Examination GENERAL APPEARANCE: pleasant , well nourished, well developed, in no acute distress HEAD: EYES: sclera non-icteric EARS: NOSE: THROAT: NECK/THYROID: no cervical lymphade nopathy, neck supple HEART: S1, S2 normal CHEST: LUNGS: clear to auscultatio n bilaterally ABDOMEN: normal bowel sounds, no guarding or rigidity, no guarding or rigidity, no masses palpable, soft, nontender, nondistended NEUROLOGIC: alert and oriented SKIN: nonjaundiced, no spi kalee angiomata EXTREMITIES: no edema PERIPHERAL PULSES: BACK: BREASTS: MUSCULOSKELETAL: MALE GENITOURINARY: LYMPH NODES: RECTAL EXAM: FEMALE GENITOURINARY: ORAL CAVITY: mucosa moist
[2024-07-20 13:18] VITALS: BMI 25.1
--- NOTE | 2024-07-21 09:10 | HO.ANESPROP2 ---
Documented by User: Tyesha Walter NP 07/21/24 09:11 HPI - Anesthesia Eval Consult details Narrative: 68yo M for Colonoscopy Anesthesia Pre-Procedure Meds Is the patient on any of the following meds?: SGLT2 Inhib PMFSH Active Problems Active Problems: All Active Problems BPH loc w urin obs/LUTS (Acute) Numbness of left foot (Acute) Frequency of micturition (Acute) Superficial thrombophlebitis of left leg (Acute) Right middle lobe pulmonary nodule (Acute) Annual physical exam (Acute) Impingement syndrome of right shoulder (Acute) Degenerative joint disease, shoulder, right (Acute) Right shoulder pain (Acute) Cataract (Acute) Preoperative clearance (Acute) Tubular adenoma of colon (Acute) Type 2 diabetes mellitus with hyperglycemia (Acute) Hypertension (Acute) Hyperlipidemia LDL goal <100 (Acute) Vitamin D deficiency (Acute) Subclinical hypothyroidism (Acute) Chronic kidney disease (CKD) stage G2/A1, mildly decreased glomerular filtration rate (GFR) between 60-89 mL/min/1.73 square meter and albuminuria creatinine ratio less than 30 mg/g (Acute) Overweight (BMI 25.0-29.9) (Acute) Past Medical History Medical History History of insertion of dental endosseous implant COVID-19 virus infection Type 2 diabetes mellitus with hyperglycemia Pancreatitis Hyperlipidemia LDL goal <100 Diabetic nephropathy Degenerative disc disease, lumbar Vitamin D deficiency Leukopenia Lumbar back pain with radiculopathy affecting left lower extremity Subclinical hypothyroidism Tubular adenoma of colon Chronic kidney disease (CKD) stage G2/A1, mildly decreased glomerular filtration rate (GFR) between 60-89 mL/min/1.73 square meter and albuminuria creatinine ratio less than 30 mg/g Hypertension Overweight (BMI 25.0-29.9) Family History Family History Father No problems noted. Mother Diabetes Brother Diabetes Sister No problems noted. Surgical History Surgical History H/O colonoscopy Retained orthopedic hardware Hx of hand surgery History of thumb surgery Trigger thumb, right thumb Social History Social History Household Members: Family Housing: House Alcohol intake: current Alcohol intake frequency: holidays/special occasions only Alcohol type: beer Comment: 2x a year 2-3 beers Patient Tobacco Use Status: Former Tobacco user Tobacco use type: Cigarette Years Smoked: quit smoking 1993 e-Cigarette/Vaping Use: Never Used Second Hand Smoke Exposure: No Use of substances other than those prescribed or required for medical reasons: Yes Substance Use Type Other:: last used 3 days ago Substance Use Frequency: Occasionally Are you DNR?: No Advance Directives: No Advance Directives Information Provided: Yes service: Yes Current occupational status: employed Current occupational exposures/hazards: No Cognitive needs: No Hearing needs: No Vision needs: No Meds Allergies Allergy/AdvReac Type Severity Reaction Status Date / Time dulaglutide [Trulicity] Allergy Unknown pancreatiti Verified 07/24/24 07:46 s sitagliptin [From JANUVIA] Allergy Unknown DIARRHEA Verified 07/24/24 07:46 Home Medications ?Medication ?Instructions ?Recorded ?Confirmed ?Last Taken ?Type omega-3 fatty acids 1,000 mg 1,000 mg PO DAILY 02/21/20 07/24/24 Unknown History capsule aspirin 81 mg tablet,delayed 81 mg PO DAILY 09/03/22 07/24/24 07/21/24 History release insulin glargine 100 unit/mL (3 26 unit subcut QPM 09/03/22 07/24/24 Unknown History mL) subcutaneous pen (Lantus Solostar U-100 Insulin) metformin 1,000 mg tablet 1,000 mg PO BIDWMEAL 11/24/23 07/24/24 Unknown History Exam Height,Weight and Vital Signs: Height 5 ft 7 in Weight 72.575 kg Assessment and Plan Assessment Anesthesia Assessment: Chart Reviewed Documented by User: Ilya Faith MD 07/24/24 08:35 [facility] Past Medical History Medical History History of insertion of dental endosseous implant COVID-19 virus infection Type 2 diabetes mellitus with hyperglycemia Pancreatitis Hyperlipidemia LDL goal <100 Diabetic nephropathy Degenerative disc disease, lumbar Vitamin D deficiency Leukopenia Lumbar back pain with radiculopathy affecting left lower extremity Subclinical hypothyroidism Tubular adenoma of colon Chronic kidney disease (CKD) stage G2/A1, mildly decreased glomerular filtration rate (GFR) between 60-89 mL/min/1.73 square meter and albuminuria creatinine ratio less than 30 mg/g Hypertension Overweight (BMI 25.0-29.9) Family History Family History Father No problems noted. Mother Diabetes Brother Diabetes Sister No problems noted. Family history of problems with anesthesia: No Surgical History Surgical History H/O colonoscopy Retained orthopedic hardware Hx of hand surgery History of thumb surgery Trigger thumb, right thumb History of Problems with Anesthesia: No Social History Social History Household Members: Family Housing: House Alcohol intake: current Alcohol intake frequency: holidays/special occasions only Alcohol type: beer Comment: 2x a year 2-3 beers Patient Tobacco Use Status: Former Tobacco user Tobacco use type: Cigarette Years Smoked: quit smoking 1993 e-Cigarette/Vaping Use: Never Used Second Hand Smoke Exposure: No Use of substances other than those prescribed or required for medical reasons: Yes Substance Use Type Other:: last used 3 days ago Substance Use Frequency: Occasionally Are you DNR?: No Advance Directives: No Advance Directives Information Provided: Yes service: Yes Current occupational status: employed Current occupational exposures/hazards: No Cognitive needs: No Hearing needs: No Vision needs: No Meds Allergies Allergy/AdvReac Type Severity Reaction Status Date / Time dulaglutide [Trulicity] Allergy Unknown pancreatiti Verified 07/24/24 07:46 s sitagliptin [From JANUVIA] Allergy Unknown DIARRHEA Verified 07/24/24 07:46 Home Medications ?Medication ?Instructions ?Recorded ?Confirmed ?Last Taken ?Type omega-3 fatty acids 1,000 mg 1,000 mg PO DAILY 02/21/20 07/24/24 Unknown History capsule aspirin 81 mg tablet,delayed 81 mg PO DAILY 09/03/22 07/24/24 07/21/24 History release insulin glargine 100 unit/mL (3 26 unit subcut QPM 09/03/22 07/24/24 Unknown History mL) subcutaneous pen (Lantus Solostar U-100 Insulin) metformin 1,000 mg tablet 1,000 mg PO BIDWMEAL 11/24/23 07/24/24 Unknown History Exam Airway Mallampati Class: II TM Dist: >3cm Neck ROM: Full Loose/Missing/Broken Teeth: No Heart: ok Lungs: ok Assessment and Plan Assessment Anesthesia Assessment: Anesthesia Plan Discussed Final Anesthetic Review Family History of Problems with Anesthesia: No History of Problems with Anesthesia: No NPO: Yes ASA Class: III Final Preanesthetic Review: No Changes in Pt Med Stat, Meds/Allgs Chart Reviewed, Consent Obtained/Reviewed and Anes Risks/Benef Reviewed Patient Risk: Intermediate Procedure Risk: Low Anesthetic Plan Anesthetic Plan: MAC: and Agree w/ Assess. and Plan Disposition: Standard PACU
[2024-07-24 07:18] VITALS: BMI 24.4
[2024-07-24 07:33] VITALS: BP 116/71; PULSE 65; RESP 15; TEMP 36.3; O2SAT 96
[2024-07-24] MEDS: Lactated Ringers 1,000 ML 100 ML IVCONT (07:41)
[2024-07-24 07:51] LABS: Glucose, Whole Blood 119 mg/dL (60-115)
--- NOTE | 2024-07-24 09:28 | PM.OP ---
Brief Operative Note Date of Service: 07/24/24 Pre-op diagnosis: Screening Post-op diagnosis: other (Colon polyp) Procedure: Colonoscopy to the cecum and TI with cold snare polypectomy and biopsy/removal of polyp Surgeon: Jovani Garcia MD Anesthesia: MAC Was an Spa Concierge used for this Procedure?: No Estimated blood loss (mL): 2.0 Pathology: other (A. Polyp at 20cm) Condition: stable Disposition: PACU
[2024-07-24 09:29] VITALS: BP 94/61; PULSE 60; RESP 16; TEMP 36.1; O2SAT 97
[2024-07-24 09:44] VITALS: BP 107/66; PULSE 58; RESP 16; O2SAT 97
[2024-07-24 09:59] VITALS: BP 121/72; PULSE 72; RESP 18; TEMP 36.9; O2SAT 97
--- NOTE | 2024-07-24 10:30 | OP_ITS ---
DATE OF SERVICE: 07/24/2024 SURGEON: Jovani Garcia MD INDICATIONS: The patient presents for personal history of tubular adenoma of the colon and colorectal cancer screening. Full consent is obtained from him for this, including risks of bleeding and perforation. PREOPERATIVE DIAGNOSIS: POSTOPERATIVE DIAGNOSIS: PROCEDURE PERFORMED: Colonoscopy to cecum with biopsy and cold snare polypectomy. ESTIMATED BLOOD LOSS: COMPLICATIONS: ANESTHESIA: Monitored anesthesia care. ASSISTANTS: SPECIMENS: PREOPERATIVE DIAGNOSES: Colorectal cancer screening and personal history of tubular adenoma of the colon. POSTOPERATIVE DIAGNOSES: Colorectal cancer screening and personal history of tubular adenoma of the colon, small colon polyp, diverticulosis, and internal hemorrhoids. DESCRIPTION OF PROCEDURE: The patient was placed in the left lateral decubitus position. The digital rectal exam revealed no abnormalities. The Olympus video pediatric colonoscope was entered into the rectum and advanced easily to the cecum. Once in the cecum, I did identify normal-appearing cecal pouch and appendiceal orifice. The ileocecal valve appeared normal. The terminal ileum was cannulated and appeared normal as well. The scope was withdrawn back in the colon. The entire cecum and ileocecal valve appeared normal. The scope was slowly withdrawn assessing all mucosal surfaces carefully. Preparation was excellent. At 20 cm, there was a flat, but raised approximately 5 mm polyp. This was initially partially removed with cold snare and recovered by suction. The remainder was removed with a cold biopsy forceps. There was no sign of any residual polyp nor significant bleeding. I did not visualize any other polyps, colitis, nor angiodysplasia. There was a mild amount of sigmoid diverticulosis. In the rectum, scope was retroflexed visualizing internal hemorrhoids, but no other pathology. The rectal mucosa appeared normal. Scope was straightened and withdrawn from the patient. He tolerated the procedure well and was returned to the recovery area in stable condition. IMPRESSION: 1. Small colon polyp. 2. Diverticulosis. 3. Internal hemorrhoids. PLAN: The results of the pathology will be checked. I would recommend a repeat colonoscopy in 5 years. He will otherwise see me on a p.r.n. basis. MD HERNÁN Rausch/RANI / [id number] MTDD
== END 2024-07-24 10:14 | disposition home or self-care (01) ==
PROVIDERS: PCP Internal Medicine; Visit Provider Internal Medicine
PROC: 0DJD8ZZ Inspection of Lower Intestinal Tract, Via Natural or Artificial Opening Endoscopic (ICD-10-PCS; CPT 45378; principal; 2024-07-24 08:30)
DX: Z12.11 Encounter for screening for malignant neoplasm of colon (principal); Z86.0101 Personal history of adenomatous and serrated colon polyps; D12.5 Benign neoplasm of sigmoid colon; K57.30 Diverticulosis of large intestine without perforation or abscess without bleeding; K64.8 Other hemorrhoids; K85.90 Acute pancreatitis without necrosis or infection, unspecified; E11.9 Type 2 diabetes mellitus without complications; I10 Essential (primary) hypertension; E78.5 Hyperlipidemia, unspecified; E55.9 Vitamin D deficiency, unspecified; E03.9 Hypothyroidism, unspecified; Z79.4 Long term (current) use of insulin; Z79.84 Long term (current) use of oral hypoglycemic drugs; Z79.82 Long term (current) use of aspirin; Z79.899 Other long term (current) drug therapy; Z88.8 Allergy status to other drugs, medicaments and biological substances; Z87.891 Personal history of nicotine dependence
CPT/HCPCS: 45385; 45380; 82947; 88305; J2003; J2704

== ENCOUNTER 2024-12-01 10:04 | Outpatient (AMB) | payer MEDICARE, SELFPAY ==
[2024-12-01 10:06] VITALS: BP 106/62; PULSE 67; O2SAT 98; BMI 24.3
--- NOTE | 2024-12-01 10:06 | A.OFFPC_ITS ---
Vital Signs 12/01/24 10:06 Height 5 ft 7 in Weight 155 lb BMI 24.3 BP 106/62 Blood Pressure Location Lt brachial Position Sitting Pulse 67 Pulse Source Pulse Oximeter Pulse Oximetry (%) 98 Oxygen Delivery Method Room Air Intake Visit Reasons: Annual Exam - see comments Allergies dulaglutide (Trulicity) Allergy (Unknown, Verified 12/01/24 10:07) pancreatitis sitagliptin (From JANUVIA) Allergy (Unknown, Verified 12/01/24 10:07) DIARRHEA Medication List - Last Reconciled 12/01/24 by Freddie Wade MD aspirin 81 mg PO DAILY blood sugar diagnostic (AeroScoutuch Verio test strips) As directed three times a day cholecalciferol (vitamin D3) 50 mcg (2 x 25 mcg (1,000 unit)) PO DAILY empagliflozin (Jardiance) 25 mg PO DAILY flash glucose scanning reader ([employer] Lucinda 14 Day Bath) As directed flash glucose sensor ([employer] Lucinda 14 Day Sensor kit) As directed insulin glargine (Lantus Solostar U-100 Insulin) 26 units subcut QPM levothyroxine 50 mcg PO DAILY lisinopril 10 mg PO DAILY metformin 1,000 mg PO BIDWMEAL omega-3 fatty acids 1,000 mg PO DAILY rosuvastatin 20 mg PO DAILY Tobacco use date assessed: 04/04/24 Fall risk assessment: No Falls in past year Last assessed Fall Risk: 12/01/24 Dental Screening Dental Screen Date: 04/04/24 [facility] Medical History (Updated 12/01/24 @ 10:30 by Freddie Wade MD) History of insertion of dental endosseous implant COVID-19 virus infection Type 2 diabetes mellitus with hyperglycemia Pancreatitis Hyperlipidemia LDL goal <100 Diabetic nephropathy Degenerative disc disease, lumbar Vitamin D deficiency Leukopenia Lumbar back pain with radiculopathy affecting left lower extremity Subclinical hypothyroidism Tubular adenoma of colon Chronic kidney disease (CKD) stage G2/A1, mildly decreased glomerular filtration rate (GFR) between 60-89 mL/min/1.73 square meter and albuminuria creatinine ratio less than 30 mg/g Hypertension Overweight (BMI 25.0-29.9) Surgical History H/O colonoscopy Retained orthopedic hardware Hx of hand surgery History of thumb surgery Trigger thumb, right thumb Family History (Updated 12/01/24 @ 10:35 by Freddie Wade MD) Father No problems noted. Mother Diabetes Brother Diabetes Sister No problems noted. Son Non-Hodgkin lymphoma Social History (Updated 12/01/24 @ 10:36 by Freddie Wade MD) Household Members: Family Housing: House Alcohol intake: current Alcohol intake frequency: holidays/special occasions only Alcohol type: beer Comment: 2x a year 2-3 beers, once a month (4 drinks) 11/2024 Patient Tobacco Use Status: Former Tobacco user Tobacco use type: Cigarette Years Smoked: quit smoking 1993 e-Cigarette/Vaping Use: Never Used Second Hand Smoke Exposure: No service: Yes Current occupational status: employed Current occupational exposures/hazards: No Cognitive needs: No Hearing needs: No Vision needs: No Questionnaire Thrive Questionnaire Date Thrive assessed: 07/21/24 I am a: Patient What is your living situation today?: I have a steady place to live Within the past 12 months, did the food you bought not last and you didn't have the money to get more?: Never true Within the past 12 months, did you worry whether your food would run out before you got money to buy more?: Never true Do you have trouble paying for medicines?: No Do you have trouble getting transportation to medical appointments?: No Do you have trouble paying your heating and electricity bill?: No Do you have trouble taking care of your child, family member or friend?: No Do you have trouble with day-to-day activities such as bathing, preparing meals, shopping, managing finances, etc.?: No Are you currently unemployed and looking for a job?: No Are you interested in more education?: No Please select the resources that you would like help with: None Currently or been in a relationship where the following occur: No concerns reported THRIVE Score: 0 THEODORE-7 AMB Questionnaire THEODORE-7 Date THEODORE - 7 assessed: 04/04/24 Source: Developed by Drs. Jovani Campos, Terri Tran, Javi Carranza and colleagues, with an educational toni from [employer]. Review of Systems Const Denies poor appetite and Denies weakness Eyes Denies no additional complaints ENT Reports Normal hearing present, Denies dizziness, Denies nasal congestion, Denies tinnitus and Denies sore throat Card Denies chest pain, Denies syncope, Denies rapid heart rate and Denies dyspnea Resp Denies cough and Denies dyspnea GI Denies change in stool character, Reports constipation, Denies diarrhea, Denies nausea and Denies vomiting Denies dysuria and Denies urinary frequency Neuro Reports Normal hearing present, Denies confusion, Denies dizziness, Denies syncope and Denies weakness Psych Denies confusion Physical exam (Primary Care) Vital Signs: Last Vital Signs Pulse 67 12/01/24 10:06 BP 106/62 12/01/24 10:06 Pulse Ox 98 12/01/24 10:06 Oxygen Delivery Method Room Air 12/01/24 10:06 BMI result Body Mass Index 24.3 Tobacco/Smoking Status: Tobacco use Status Tobacco use date assessed 04/04/24 12/01/24 10:08 Patient Tobacco Use Status Former Tobacco user 12/01/24 10:36 Tobacco use type Cigarette 12/01/24 10:36 e-Cigarette/Vaping Use Never Used 12/01/24 10:36 Thrive Assessment: Date of Thrive Assessment Date Thrive assessed 07/21/24 12/01/24 10:08 Currently or been in a relationship where the following occur: No concerns reported Const General: No confusion Orientation/consciousness: No confusion HENMT Head: Yes normocephalic Ears: external ears normal and TM's normal bilaterally Face and sinus: Yes normal facial exam Mouth: moist mucous membranes Throat: Yes tonsils normal Eyes Conjunctivae: conjunctivae normal Pupils: Equal, round and reactive pupils present and Pupil accommodation reflex normal Direct Ophthalmoscopy: normal light reflex Neck Neck: No lymphadenopathy Thyroid: Thyroid normal Chest Chest palpation & inspection: normal inspection of the chest Resp Effort & Inspection: normal respiratory effort and no audible wheezes Auscultation: clear to auscultation bilaterally, no crackles, no wheezes and lung sounds not diminished Cardio Rate: regular rate Rhythm: regular rhythm Peripheral pulses: radial pulses present and dorsalis pedis present GI Other: colon just done 07/2024 pin prick and pedal pulse good Palpation (GI): no masses Auscultation: normal bowel sounds and normoactive bowel sounds Rectal Exam - Male: Yes deferred Male General Exam: Yes normal external exam Skin General skin exam: no rashes or lesions noted Rashes: no rashes Neuro General: No confusion Cranial nerves: Yes Equal, round and reactive pupils present and Yes Normal hearing present Cognition (Neuro): normal cognition Gait exam (Neuro): Normal gait present Motor exam (neuro): 5/5 motor strength present throughout Deep tendon reflexes (DTR's): Right brachioradialis reflex intensity grade: 2+, Left brachioradialis reflex intensity grade: 2+, Right patellar reflex intensity grade: 2+ and Left patellar reflex intensity grade: 2+ Extrem General: No edema Results AMB Hemoglobin A1c AMB Hemoglobin A1c 6.7 % Last Edit by Criss Kelly CMA on 12/01/24 10 :27 Results Reviewed Results Reviewed: Laboratory Last Values Hgb A1c (Clinic) 6.7 % (4.0-6.0) H 12/01/24 10:08 Coding Level of Care Code Est Pt Prev Care >65y(59732) Diagnoses Annual physical exam Z00.00 BPH loc w urin obs/LUTS N40.1 Chronic kidney disease (CKD) stage G2/A1, mildly decreased glomerular filtration rate (GFR) between 60-89 mL/min/1.73 square meter and albuminuria creatinine ratio less than 30 mg/g N18.2 Type 2 diabetes mellitus with hyperglycemia, with long-term current use of insulin E11.65; Z79.4 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 (2) BPH loc w urin obs/LUTS: Code(s): N40.1 - Benign prostatic hyperplasia with lower urinary tract symptoms Category: Medical Plan: Continue to monitor (3) Chronic kidney disease (CKD) stage G2/A1, mildly decreased glomerular filtration rate (GFR) between 60-89 mL/min/1.73 square meter and albuminuria creatinine ratio less than 30 mg/g: Code(s): N18.2 - Chronic kidney disease, stage 2 (mild) Category: Medical Plan: Keep well hydrated, avoid NSAIDs (4) Type 2 diabetes mellitus with hyperglycemia: Comment: [place] Code(s): E11.65 - Type 2 diabetes mellitus with hyperglycemia Category: Medical Qualifiers: Diabetes mellitus photographic enlarger operator insulin use: with photographic enlarger operator use Qualified Code(s): E11.65 - Type 2 diabetes mellitus with hyperglycemia; Z79.4 - braided rug maker (current) use of insulin Plan: Decrease the amount of carbohydrate intake, pasta, bread, rice and potatoes are all sugar and that is aside from all the sweet stuff, remember that fruits are good but they are Sweet also. Hemoglobin A1c goal of less than 7.0 patient on metformin a 1000 mg twice a day Lantus 26 units once a day Jardiance 25 mg once a day (5) Hypertension: Code(s): I10 - Essential (primary) hypertension Category: Medical Qualifiers: Hypertension type: essential hypertension Qualified Code(s): I10 - Essential (primary) hypertension Plan: Continue with blood pressure medication. Decrease salt intake and exercise continue with lisinopril 10 mg once a day (6) Hyperlipidemia LDL goal <100: Code(s): E78.5 - Hyperlipidemia, unspecified Category: Medical Plan: Avoid fried foods, chicken skin, eggs, butter margarine, pastries and meat. Be it pork or beef they have a lot of cholesterol LDL goal of less than 100 and triglyceride of less than 150 March 2024 last blood work on rosuvastatin 20 mg once a day (7) Hypothyroidism: Code(s): E03.9 - Hypothyroidism, unspecified Category: Medical Plan: Continue with thyroid medication Plan History of Present Illness The patient is a 69-year-old male presenting for a physical examination and management of chronic conditions. The patient has a history of chronic kidney disease, hypercholesterolemia, hypertension, and diabetes mellitus. He also has a history of tubular adenoma of the colon, with the last colonoscopy performed in July 2024, which revealed a tubular adenoma polyp that was removed. The patient reports normal liver and renal function, with a normal blood count and no anemia as of March. His LDL cholesterol was 74 mg/dL, triglycerides were 210 mg/dL, and PSA was normal. Thyroid function was normal upon retesting in July. The patient has been managing diabetes with metformin, Lantus, and Jardiance, aiming for a hemoglobin A1c goal of less than 7.0%. He reports occasional low blood sugar readings, particularly when not eating at night or after consuming fish for dinner. He has been advised to reduce Lantus from 26 to 22 units to prevent hypoglycemia. The patient denies any new diagnoses or surgeries since the last visit. He reports no family history of colon cancer, but his son was recently diagnosed with non-Hodgkin lymphoma. He consumes alcohol infrequently, about once a month, and smokes occasionally to aid sleep, though he has been advised to switch to edibles due to cardiovascular risks associated with smoking. Health Maintenance - Colonoscopy performed in July 2024 with removal of tubular adenoma polyp - Blood work in March showed normal liver and renal function, normal blood count, and no anemia - LDL cholesterol at 74 mg/dL, triglycerides at 210 mg/dL, PSA normal - Thyroid function normal upon retesting in July - Vaccinations: Flu shot recommended in December, COVID-19 vaccination advised Social History - Alcohol use: Consumes alcohol infrequently, about once a month, typically four to five beers at a time - Tobacco use: Smokes occasionally to aid sleep, advised to switch to edibles due to cardiovascular risks - Family history: No family history of colon cancer, son diagnosed with non- Hodgkin lymphoma Review of Systems - General: Denies fever, nausea, vomiting - Cardiovascular: Denies chest pain, reports occasional dizziness when bending down - Respiratory: Denies dyspnea, denies waking up short of breath - Gastrointestinal: Denies constipation, denies blood in stools - Neurological: Reports occasional dizziness when bending down Physical Exam General: Cooperative, healthy appearing, comfortable, no acute distress and well developed Orientation: Patient oriented x3 Limitations: No limitations Head: Normal to inspection Ears: Hearing grossly normal bilaterally Nose: Normal external nose present Face and sinus: Normal facial exam Eyes: Appearance normal, both eyes and all related structures Neck: Normal visual inspection and Yes full ROM Respiratory: Normal respiratory effort and able to speak in complete sentences. Clear to auscultation bilaterally Cardiovascular: Regular rate and rhythm. Normal S1 and S2 GI: Normal to inspection. Soft to palpation and nontender Skin: No rashes or lesions noted Neuro: Patient oriented x3 Extremities: Normal to inspection Results - Labs: Normal liver and renal function, normal blood count, no anemia - Labs: LDL cholesterol 74 mg/dL, triglycerides 210 mg/dL, PSA normal - Labs: Thyroid function normal upon retesting in July - Tests: Colonoscopy in July 2024 showed tubular adenoma polyp, which was removed Plan Patient was informed and verbally consented to the use of an ambient scribe for clinic note documentation during this visit. 1. Chronic Kidney Disease The patient is advised to maintain hydration and avoid NSAIDs to manage chronic kidney disease. 2. Hypercholesterolemia The patient is on rosuvastatin 20 mg once a day with an LDL goal of less than 100 mg/dL. 3. Hypertension The patient is advised to continue lisinopril 10 mg once a day for hypertension management. 4. Diabetes Mellitus The patient is managing diabetes with metformin, Lantus, and Jardiance, aiming for a hemoglobin A1c goal of less than 7.0%. He is advised to reduce Lantus from 26 to 22 units to prevent hypoglycemia. 5. Tubular Adenoma Of The Colon The patient underwent a colonoscopy in July 2024, where a tubular adenoma polyp was removed. 6. Benign Prostatic Hyperplasia (Bph) The patient is monitored for symptoms of benign prostatic hyperplasia. 7. Proteinuria The patient is advised to control blood pressure, cholesterol, and diabetes to manage proteinuria. 8. Hypothyroidism The patient is advised to continue with thyroid medication for hypothyroidism management. Discussion Notes During the visit, I discussed with the patient the importance of managing chronic conditions such as diabetes, hypertension, and hypercholesterolemia. We reviewed the patient's current medications and made adjustments to the insulin dosage to prevent hypoglycemia. I advised the patient on lifestyle modifications, including maintaining hydration, avoiding NSAIDs, and considering edibles instead of smoking to reduce cardiovascular risks. We also discussed the importance of regular screenings and vaccinations, including the flu and COVID- 19 vaccines. Patient Instructions - Maintain hydration and avoid NSAIDs to protect kidney function. - Continue current medications for diabetes, hypertension, and cholesterol management. - Adjust Lantus dosage to 22 units to prevent low blood sugar. - Consider using edibles instead of smoking to reduce heart risks. - Schedule blood work before the next visit in March. - Get flu and COVID-19 vaccines as recommended. Orders: Orders Comprehensive Met. Panel 3 Months E11.65 - Type 2 diabetes mellitus with hyperglycemia, Z79.4 - braided rug maker (current) use of insulin Free T4 (Free Thyroxine) 3 Months E11.65 - Type 2 diabetes mellitus with hyperglycemia, Z79.4 - senior living (current) use of insulin Hemoglobin A1c 3 Months E11.65 - Type 2 diabetes mellitus with hyperglycemia, Z79.4 - braided rug maker (current) use of insulin Creatinine Urine 3 Months E11.65 - Type 2 diabetes mellitus with hyperglycemia, Z79.4 - senior living (current) use of insulin AMB Hemoglobin A1c Today Z13.9 - Encounter for screening, unspecified Complete Blood Count Auto Diff 3 Months E11.65 - Type 2 diabetes mellitus with hyperglycemia, Z79.4 - braided rug maker (current) use of insulin Thyroid Stimulating Hormone 3 Months E11.65 - Type 2 diabetes mellitus with hyperglycemia, Z79.4 - senior living (current) use of insulin Lipid Panel 3 Months E11.65 - Type 2 diabetes mellitus with hyperglycemia, E78.00 - Pure hypercholesterolemia, unspecified, Z79.4 - braided rug maker (current) use of insulin Vitamin B12 and Folate 3 Months E11.65 - Type 2 diabetes mellitus with hyperglycemia, Z79.4 - braided rug maker (current) use of insulin Prostate Specific Antigen Scr 3 Months E11.65 - Type 2 diabetes mellitus with hyperglycemia, Z79.4 - braided rug maker (current) use of insulin Microalbumin, Random (w Creat) 3 Months E11.65 - Type 2 diabetes mellitus with hyperglycemia, Z79.4 - braided rug maker (current) use of insulin Medications: Changed From insulin glargine (Lantus Solostar U-100 Insulin) 26 units subcut QPM E11.65 - Type 2 diabetes mellitus with hyperglycemia, Z79.4 - senior living (current) use of insulin To insulin glargine (Lantus Solostar U-100 Insulin) 21 units subcut QPM E11.65 - Type 2 diabetes mellitus with hyperglycemia, Z79.4 - braided rug maker (current) use of insulin
== END 2024-12-01 10:55 | disposition home or self-care (01) ==
LOC: HO.HMCH 10:05
PROVIDERS: PCP Internal Medicine; Visit Provider Internal Medicine
DX: Z00.00 Encounter for general adult medical examination without abnormal findings (principal); I12.9 Hypertensive chronic kidney disease with stage 1 through stage 4 chronic kidney disease, or unspecified chronic kidney disease; E11.65 Type 2 diabetes mellitus with hyperglycemia; Z79.4 Long term (current) use of insulin; N18.2 Chronic kidney disease, stage 2 (mild); N40.1 Benign prostatic hyperplasia with lower urinary tract symptoms; E78.5 Hyperlipidemia, unspecified; E03.9 Hypothyroidism, unspecified

== ENCOUNTER → 2024-12-01 10:04 | Outpatient (BNVA) | payer MEDICARE, SELFPAY | PROVIDERS: PCP Internal Medicine; Visit Provider Internal Medicine | DX: Z00.00 Encounter for general adult medical examination without abnormal findings (principal); N40.1 Benign prostatic hyperplasia with lower urinary tract symptoms; I12.9 Hypertensive chronic kidney disease with stage 1 through stage 4 chronic kidney disease, or unspecified chronic kidney disease; E11.22 Type 2 diabetes mellitus with diabetic chronic kidney disease; N18.2 Chronic kidney disease, stage 2 (mild); E78.00 Pure hypercholesterolemia, unspecified; E11.65 Type 2 diabetes mellitus with hyperglycemia; E03.9 Hypothyroidism, unspecified; R80.9 Proteinuria, unspecified; Z79.4 Long term (current) use of insulin | CPT/HCPCS: 83036; 99397 ==

== ENCOUNTER 2025-02-23 16:20 | Outpatient (REF) | payer MEDICARE, SELFPAY ==
--- OUTSIDE RECORDS SUMMARY | 2024-07-24 03:30 | XMS_ITS ---
Author Organization [facility] Address [address] [place] [address] Care Team Providers Care Nuclear Operations Specialist Name Role Phone Freddie Wade MD Primary Care Provider Jovani Carrington [phone] REASON FOR VISIT screening,hx polyps Encounters Encounter Location Date Provider Diagnosis [facility] [address] [place] [phone] 07/24/2024 Jovani Garcia Colon cancer scree luisa Z12.11 ; Adenomatous colon polyp D12.6 ; Diverticulosis of large intestine without perforation or abscess without bleeding K57.30 and Other hemorrhoids K64.8 Assessments Encounter Date Diagnosis (ICD Code) Assessment Notes Treatment Notes Treatment Clinical Notes Section Notes 07/24/2024 Colon cancer screening (ICD-10 - Z12.11) 07/24/2024 Adenomatous colon polyp (ICD-10 - D12.6) 07/24/2024 Diverticulosis of large intestine without perforation or abscess without bleeding (ICD-10 - K57.30) 07/24/2024 Other hemorrhoids (ICD-10 - K64.8) Plan Of Treatment No Information Progress Notes * CRUZITO GUZMAN RDOB: (69 yo M)Acc No.[id number]:07/24/2024 COLON WITH MAC Patient: Dipika CRUZITO CARROLL Provider: Kacie Garcia MD :1955 A ge:68 Y S ex:Male Date:07/24/2024 Address:[address] [place], [place] [phone] Pcp:Freddie Wade MD Subjective: * Chief Complaints: * S creening,hx polyps Assessment: * Assessment: 1. C olon cancer screening - Z12.11 (Primary) 2 . A denomatous colon polyp - D12.6 3 . D iverticulosis of large intestine without perforation or abscess without bleeding - K57.30 4 . O ther hemorrhoids - K64.8 Plan: * Procedure Codes: 4 5385 LESION REMOVAL COLONOSCOPY, Mod[place]: [place] [address] COLONOSCOPY AND BIOPSY, Modifiers: 59 , [id number] INTRVL 3+YRS PTS CLNSCP [id number] RCMND FLW-UP 10 YRS DOCD, Modifiers: 1P Billing Information: * Procedure Codes: 00085 LESION REMOVAL [place] [address] COLONOSCOPY AND BIOPSY. Modifiers: 59, PT 0529F INTRVL 3+YRS PTS CLNSCP DOCD. 0528F RCMND FLW-UP 10 YRS DOCD. Modifiers: 1P * The named appointment provid er may or may not be the originator of this progress note, and it is not deemed complete until electronically signed by the appointment provider. Sign off status: Pending * Provider: Kacie Garcia MD Date: 0 07/24/2024 Generated for Eitan guzman/Teresa/Rachelitting on: 04/26/2024 08:42 PM EST
--- NOTE | ~2025-02-23 | CT_ITS ---
EXAMINATION: CT CHEST WITHOUT CONTRAST CLINICAL INFORMATION: R91.1 - Solitary pulmonary nodule COMPARISON: 12/24/23 TECHNIQUE: Multidetector volumetric CT imaging of the chest was done. Axial MIP volume rendering provided. Sagittal and coronal reformatted images were obtained. This CT examination was performed using dose optimization techniques as appropriate, variously including the following: *Automated exposure control *Adjustment of mA and/or kV according to patient size (this includes techniques or standardized protocols for targeted exams where dose is matched to indication/reason for exam; i.e. extremities or head) *Use of iterative reconstruction technique FINDINGS: LUNGS: Again seen are a few scattered tiny pulmonary nodules. For example, in the posterior basal left lower lobe, there is a 2 mm pulmonary nodule (axial image 128/162), unchanged. MEDIASTINUM: Unremarkable CORONARY ARTERY CALCIFICATION: Present PLEURA: There is no pleural effusion. No pleural mass or thickening. AXILLA: No lymphadenopathy. UPPER ABDOMEN: Unremarkable. OSSEOUS STRUCTURES: There is grade 1 anterolisthesis at C7-T1. There is severe degenerative changes at T1-T2 subtle grade 1 retrolisthesis, endplate sclerosis , disc space narrowing, and osteophytes. There is severe degenerative changes at L1-2. There are [id number] degenerative changes elsewhere in the mid to lower thoracic spine. CT/CT chest wo IV con IMPRESSION: Stable multiple sub-6 mm pulmonary nodules. No further follow-up is indicated. Degenerative disc disease and facet osteoarthritis. Electronically signed by: Ricky Landeros MD 02/23/2025 05:19 PM [facility] [place]
--- OUTSIDE RECORDS SUMMARY | 2025-02-23 20:43 | XMS_ITS | Patient Health Record ---
Author Organization [facility] Address [address] [place] [id number] Care Team Providers Care Health And Safety Tech Name Role Phone Po Freddie MANN Primary Care Provider Jovani Carrington [phone] Allergies Allergen (clinical drug ingredient) Drug/Non Drug Allergy documented on EMR Reaction Allergy Type Onset Date Status sitagliptin Januvia diarrhea Drug Allergy Activ e dulaglutide Trulicity pancreatitis Drug Allergy Ac tive Results Component Value Reference Range Flag Notes Glucose, Whole Blood Reviewed date:07/24/2024 11:34:50 PM Interpretation: Performing Lab:[facility], [address] [place] [phone] Notes/Report: Glucose, Whole Blood 119 60-115 mg/dL H DE TER #: [id number] Pathology (Not yet reviewed by provider) Interpretation: Performing Lab:[facility], [address] [place] [phone] Notes/Report: Reason For Referral No Information Medications Medication SIG (Take, Route, Frequency, Duration) Notes Start Date End Date Status Rosuvastatin Calcium 20 MG Tablet 1 tablet Orally Once a day Active glipiZIDE 10 MG Tablet 1 tablet Orally O nce a day Not-Taking/PRN Levothyroxine Sodium 50 MCG Tablet 1 tablet in the morning on an empty stomach Orally Once a day Active Jardiance 25 MG Tablet 1 tablet Orally O nce a day; Duration: 30 day(s) Active Lantus SoloStar 100 UNIT/ML Solution Pen-injector as directed Subcutaneous Active Vitamin D3 Active metFORMIN HCl 1000 MG Tablet 1 tablet in the AM and 2 in the PM Orally as directed/ twice a day Active HumaLOG KwikPen 100 UNIT/ML Solution Pen-injector as directed Subcutaneous Active Fish Oil 1000 MG Capsule 1 capsule Orally Once a day Active Lisinopril 10 MG Tablet 1 tablet Orally Once a day Active Aspir-81 81 MG Tablet Delayed Release 1 tablet Orally Once a day Active Social History Tobacco Use: Social History Observation Description Date Details (start date - stop date) Former Smoker NA - NA Social History Drugs/Alcohol: Social Info Question Answer Notes Alcohol Screen Did you have a drink containing alcohol in the past year? Yes How often did you have a drink containing alcohol in the past year? Monthly or less (1 point) How many drinks did you have on a typical day when you were drinking in the past year? 1 or 2 drinks (0 point) How often did you have 6 or more drinks on one occasion in the past year? Never (0 point) Points 1 Interpretation Negative Tobacco Use: Social Info Question Answer Notes Tobacco Use/Smoking Patient is a former smoker How long has it been since you last smoked? > 10 years Additional Details Category Social Info Options Details Miscellaneous: Marital status: Occupation: [employer] Notes: Nonsmoker > 10 yrs ago, no s ig alcohol Nonsmoker > 10 yrs ago, no s ig alcohol Problems Problem Type SNOMED Code ICD Code Onset Dates Problem Status W/U Status Risk Notes Problem Screening for malignant neoplasm of colon (501180497) Encounter for screening for malignant neoplasm of colon (Z12.11) Active confirmed Problem History of polyp of colon (situation) (242065982) Personal history of colonic polyps (Z86.010) Active confirmed Problem Pre-procedure evaluation check (028068736) Encounter for other preprocedural examination (Z01.818) Active confirmed Problem Pre-procedure evaluation check (521495525) Pre-procedural examination (Z01.818) Active confirmed Vital Signs Blood pressure diastolic 00 mm Hg 03/30/2024 Height 67 in 03/30/2024 Blood pressure systolic 00 mm Hg 03/30/2024 Weight 160 lbs 03/30/2024 BMI 25.06 kg/m2 03/30/2024 Encounters Encounter Location Date Provider Diagnosis [facility] [address] [place] [phone] 07/24/2024 Jovani Garcia Colon cancer screeni ng Z12.11 ; Adenomatous colon polyp D12.6 ; Diverticulosis of large intestine without perforation or abscess without bleeding K57.30 and Other hemorrhoids K64.8 [facility] [address] [place] [address] 03/30/2024 Jovani Garcia Encounter for screen ing for malignant neoplasm of colon Z12.11 ; Encounter for other preprocedural examination Z01.818 and Personal history of colonic polyps Z86.010 [facility] [address] [place] [address] 03/30/2024 Jovani Garcia [facility] [address] [place] [address] 12/12/2024 Jovani Garcia Assessments Encounter Date Diagnosis (ICD Code) Assessment Notes Treatment Notes Treatment Clinical Notes Section Notes 07/24/2024 Colon cancer screening (ICD-10 - Z12.11) 07/24/2024 Adenomatous colon polyp (ICD-10 - D12.6) 03/30/2024 Encounter for screening for malignant neoplasm [...] to keep you advised of his progress. 07/24/2024 Diverticulosis of large intestine without perforation or abscess without bleeding (ICD-10 - K57.30) 07/24/2024 Other hemorrhoids (ICD-10 - K64.8) Plan Of Treatment Pending Test Test Name Order Date Pathology 07/24/2024 Future Test Test Name Order Date COLONOSCOPY 02/11/2018 COLONOSCOPY 03/30/2024 Insurance Providers Payer Name Payer Address Payer Phone Subscriber Number Group Number Insured Name Patient Relationship to Insured Coverage Start Date Coverage End Date [facility] Medicare Advantage Plan [address] [address] [place] [address] [id number] Self - patient is the insured Medical (General) History Medical History History ICD Code Denies DC,CVA,Lung disease,renal disease IDDM Hypertension Negative screening colonosco py in 07/2007--hyperplastic polyps, diverticulosis, internal hemorrhoids Hyperlipidemia Pancreatitis--from Trulicity Vitamin D deficiency Colonoscopy 03/2018 with a small tubular adenoma removed Hypothyroidism Surgical History Surgery Date(Month/Year) Right hand surgery in 2015 Left hand surgery scheduled for 02/[address] L[facility] surgery
== END 2025-02-23 16:21 | disposition home or self-care (01) ==
LOC: HO.CT 16:20
PROVIDERS: PCP Internal Medicine; Visit Provider Internal Medicine
DX: R91.1 Solitary pulmonary nodule (principal)
CPT/HCPCS: 71250

== ENCOUNTER → 2025-02-23 16:23 | Outpatient (BNV) | payer MEDICARE, SELFPAY | PROVIDERS: PCP Internal Medicine; Visit Provider Radiology Diagnostic Radiology | DX: R91.8 Other nonspecific abnormal finding of lung field (principal); M51.34 Other intervertebral disc degeneration, thoracic region; M47.814 Spondylosis without myelopathy or radiculopathy, thoracic region | CPT/HCPCS: 71250 ==